=== PATIENT | female | born 1945 | race Two or more races ===

== ENCOUNTER 2022-11-22 10:58 | Inpatient (IN) | payer MEDICAID, OTHER ==
[~2022-11-22] VITALS: Ht 152.4 cm; Wt 57.2 kg
[2022-11-22] MEDS ORDERED: IPRATROPIUM BROM 0.5 MG/2.5ML INH SOL HHN ONE (11:30)
[2022-11-22] MEDS ORDERED: ALBUTEROL SULF 2.5 MG/0.5ML(0.5%) NEB SOLN HHN ONE (11:30)
[2022-11-22] MEDS ORDERED: methylPREDNISolone SOD SUCC 125 MG/2 ML VL IV ONE (11:30)
[2022-11-22 12:15] LABS: Basophils # (auto) 0 10 ^3/uL (0-0.2); Basophils % (auto) 0.6 % (0.0-2.0); Eosinophils # (auto) 0.1 10 ^3/uL (0-0.8); Hematocrit 44.9 % (36.0-46.0); Hemoglobin 15.2 g/dL (12.2-16.2); Lymphocytes # (auto) 1.1 10 ^3/uL (0.4-5.4); Lymphocytes % (auto) 13.4 % (10.0-50.0); Mean Corpuscular Hgb Conc. 33.8 g/dL (32.0-36.0); Mean Corpuscular Volume 91.8 fL (80.0-100.0); Monocytes # (auto) 0.3 10 ^3/uL (0-1.3); Monocytes % (auto) 3.6 % (0.0-12.0); Neutrophils # (auto) 6.6 10 ^3/uL (1.6-8.6); Neutrophils % (auto) 81.4 % (37.0-80.0); Nucleated Red Blood Cells % 0.1 %; Red Blood Cells 4.89 10^6/uL (4.0-5.20); Red Cell Distribution Width 13.4 % (11.8-14.3); White Blood Cell 8.1 10^3/uL (4.4-10.8)
[2022-11-22 12:34] LABS: Albumin 3.6 g/dL (3.4-5.0); Calcium 8.7 mg/dL (8.5-10.1); Magnesium 1.9 mg/dL (1.6-2.6); Potassium 4.1 mmol/L (3.5-5.1)
[2022-11-22 12:39] LABS: BUN/Creatinine Ratio 26.2; Bilirubin, Total 0.3 mg/dL (0.2-1.0); Total Protein 7.1 g/dL (6.4-8.2)
[2022-11-22 14:58] LABS: Urine Bacteria NONE SEEN /hpf (None Seen); Urine Blood Negative /uL (Negative); Urine Specific Gravity 1.011 (1.001-1.035); Urine WBC <1 /hpf (0 - 5)
[2022-11-22 18:00] VITALS: BP 147/65
[2022-11-22] MEDS ORDERED: ALBUTEROL SULF 2.5 MG/0.5ML(0.5%) NEB SOLN NEB PRN (18:00)
[2022-11-22] MEDS ORDERED: MORPHINE SULFATE INJ 2 MG/ml SYRG IV PRN (18:00)
[2022-11-22] MEDS ORDERED: NITROGLYCERIN 0.4 MG SL TAB SL PRN (18:00)
[2022-11-22] MEDS ORDERED: IPRATROPIUM BROM 0.5 MG/2.5ML INH SOL NEB PRN (18:00)
[2022-11-22] MEDS ORDERED: LISINOPRIL 10 MG TAB PO ONE (18:15)
[2022-11-22] MEDS ORDERED: hydrALAZINE HCL 20 MG/ML VL IV PRN (18:15)
[2022-11-22] MEDS: IPRATROPIUM BROM 0.5 MG/2.5ML INH SOL NEB SCH (18:38)
[2022-11-22] MEDS: ALBUTEROL SULF 2.5 MG/0.5ML(0.5%) NEB SOLN NEB SCH (18:38)
[2022-11-22 19:13] LABS: Cholesterol 166 mg/dL (< 200); Triglycerides 64 mg/dL (< 150)
[2022-11-22 19:15] LABS: HDL Cholesterol 49 mg/dL (40-59); LDL Cholesterol 112 mg/dL (< 100)
[2022-11-22] MEDS: methylPREDNISolone SOD SUCC 40 MG/ML VL IV SCH (21:34)
[2022-11-23] MEDS: ALBUTEROL SULF 2.5 MG/0.5ML(0.5%) NEB SOLN NEB SCH ×3 (05:21→19:11)
[2022-11-23 05:38] LABS: Basophils # (auto) 0 10 ^3/uL (0-0.2); Basophils % (auto) 0.3 % (0.0-2.0); Eosinophils # (auto) 0 10 ^3/uL (0-0.8); Hematocrit 42.1 % (36.0-46.0); Hemoglobin 14.1 g/dL (12.2-16.2); Lymphocytes % (auto) 9.4 % (10.0-50.0); Mean Corpuscular Hemoglobin 31.1 pg (28.0-32.0); Mean Corpuscular Hgb Conc. 33.6 g/dL (32.0-36.0); Mean Corpuscular Volume 92.8 fL (80.0-100.0); Monocytes # (auto) 0.2 10 ^3/uL (0-1.3); Monocytes % (auto) 1.5 % (0.0-12.0); Neutrophils # (auto) 9.7 10 ^3/uL (1.6-8.6); Neutrophils % (auto) 88.8 % (37.0-80.0); Nucleated Red Blood Cells % 0.1 %; Red Blood Cells 4.54 10^6/uL (4.0-5.20); Red Cell Distribution Width 13.5 % (11.8-14.3); White Blood Cell 10.9 10^3/uL (4.4-10.8)
[2022-11-23 05:48] LABS: Potassium 4.8 mmol/L (3.5-5.1)
[2022-11-23 05:53] LABS: Albumin 3.2 g/dL (3.4-5.0); BUN/Creatinine Ratio 25.4; Bilirubin, Total 0.3 mg/dL (0.2-1.0); Calcium 9.1 mg/dL (8.5-10.1); Total Protein 6.9 g/dL (6.4-8.2)
[2022-11-23] MEDS: methylPREDNISolone SOD SUCC 40 MG/ML VL IV SCH ×2 (10:29→21:20)
[2022-11-23] MEDS: ENOXAPARIN SOD 40 MG/0.4 ML SYRINGE SC SCH (10:30)
[2022-11-23] MEDS: LISINOPRIL 10 MG TAB PO SCH (10:31)
[2022-11-23] MEDS: IPRATROPIUM BROM 0.5 MG/2.5ML INH SOL NEB SCH ×3 (11:22→19:11)
[2022-11-23 17:36] VITALS: BP 154/64
[2022-11-23 22:00] VITALS: BP 145/50
[2022-11-24] VITALS (7 sets, daily range): BP systolic 102–154; BP diastolic 49–67
[2022-11-24] MEDS: IPRATROPIUM BROM 0.5 MG/2.5ML INH SOL NEB SCH ×3 (06:50→18:44)
[2022-11-24] MEDS: ALBUTEROL SULF 2.5 MG/0.5ML(0.5%) NEB SOLN NEB SCH ×3 (06:50→18:44)
[2022-11-24] MEDS: methylPREDNISolone SOD SUCC 40 MG/ML VL IV SCH ×2 (09:42→21:02)
[2022-11-24] MEDS: ENOXAPARIN SOD 40 MG/0.4 ML SYRINGE SC SCH (09:42)
[2022-11-24] MEDS: LISINOPRIL 10 MG TAB PO SCH (09:43)
[2022-11-25 05:00] VITALS: BP 155/56
[2022-11-25] MEDS: IPRATROPIUM BROM 0.5 MG/2.5ML INH SOL NEB SCH ×4 (07:07→18:50)
[2022-11-25] MEDS: ALBUTEROL SULF 2.5 MG/0.5ML(0.5%) NEB SOLN NEB SCH ×4 (07:07→18:50)
[2022-11-25 08:30] VITALS: BP 147/50
[2022-11-25] MEDS: methylPREDNISolone SOD SUCC 40 MG/ML VL IV SCH (08:39)
[2022-11-25] MEDS: LISINOPRIL 10 MG TAB PO SCH (08:40)
[2022-11-25] MEDS ORDERED: ENOXAPARIN SOD 30 MG/0.3 ML SYRINGE SC SCH (10:00)
[2022-11-25] MEDS ORDERED: PRED20TA2 PO (12:23)
[2022-11-25 12:30] VITALS: BP 147/49
[2022-11-25 16:30] VITALS: BP 147/49
[2022-11-25 17:00] VITALS: BP 155/56
== END 2022-11-25 18:30 | disposition home or self-care (01) | DRG 133 ==
LOC: ER 10:58 → EEVIPCON 10:58 → TELE 18:06 → TELE-WESTW 11-23 17:16
PROVIDERS: ADMIT Registered Nurse; ATTEND Internal Medicine Pulmonary Disease
DX: J96.01 Acute respiratory failure with hypoxia (principal); N17.9 Acute kidney failure, unspecified; J45.901 Unspecified asthma with (acute) exacerbation; I10 Essential (primary) hypertension; I16.0 Hypertensive urgency; Z20.822 Contact with and (suspected) exposure to COVID-19
CPT/HCPCS: 36415; 36600; 71045; 80053; 80061; 81001; 82805; 83036; 83605; 83735; 83880; 84443; 84484; 85025; 85379; 87040; 87426; 93005; 93306; 94640; 94644; G0378

== ENCOUNTER 2024-12-15 14:37 | Inpatient (IN) | payer MEDICAID ==
[~2024-12-15] VITALS: Ht 152.4 cm; Wt 64.7 kg
[~2024-12-15 14:37] MED LIST: PRED20TA2 PO
--- NOTE | 2024-12-15 14:58 | ECG ---
[facility] Test Date: 2024-12-15 Test Time: 14:52:37 Pat Name: LALITHA LAY Department: ER Room: 0274T Gender: F Nursing Associate: EZEQUIEL : 1944-09-13 Requested By: SAMUEL OLSEN Order Number: [id number] Reading MD: Melvin Morrell Measurements Intervals [place] Rate: 71 P: -4 WA: 128 QRS: -17 QRSD: 47 T: 0 QT: 420 QTc: 457 Interpretive Statements Sinus rhythm Borderline left axis deviation Borderline T abnormalities, diffuse leads Electronically Signed On 12-20-2024 20:49:57 PDT by Melvin Morrell Please click the below link to view image of tracing.
[2024-12-15] MEDS: ALBUTEROL SULF 2.5 MG/0.5ML(0.5%) NEB SOLN HHN ONE (15:09)
[2024-12-15] MEDS: IPRATROPIUM BROM 0.5 MG/2.5ML INH SOL HHN ONE (15:09)
[2024-12-15] MEDS: methylPREDNISolone SOD SUCC 125 MG/2 ML VL IV ONE (15:23)
[2024-12-15 15:24] LABS: Basophils # (auto) 0.1 10 ^3/uL (0-0.2); Basophils % (auto) 1.1 % (0.0-2.0); Eosinophils # (auto) 0.6 10 ^3/uL (0-0.8); Eosinophils % (auto) 6.5 % (0.0-7.0); Hematocrit 42.6 % (36.0-46.0); Hemoglobin 13.7 g/dL (12.2-16.2); Lymphocytes # (auto) 2.9 10 ^3/uL (0.4-5.4); Lymphocytes % (auto) 29.7 % (10.0-50.0); Mean Corpuscular Hemoglobin 29.3 pg (28.0-32.0); Mean Corpuscular Hgb Conc. 32.1 g/dL (32.0-36.0); Mean Corpuscular Volume 91.1 fL (80.0-100.0); Monocytes # (auto) 0.8 10 ^3/uL (0-1.3); Monocytes % (auto) 8.6 % (0.0-12.0); Neutrophils # (auto) 5.4 10 ^3/uL (1.6-8.6); Neutrophils % (auto) 54.1 % (37.0-80.0); Platelet Count (auto) 229 10^3/uL (140-450); Red Blood Cells 4.68 10^6/uL (4.0-5.20); Red Cell Distribution Width 13.9 % (11.8-14.3); White Blood Cell 9.9 10^3/uL (4.4-10.8)
[2024-12-15 15:30] LABS: Chloride 107 mmol/L (98-107); Potassium 4.3 mmol/L (3.5-5.1); Sodium 142 mmol/L (136-145)
[2024-12-15 15:31] LABS: Anion Gap 7 (5-15); Calcium 9.4 mg/dL (8.7-10.4); Carbon Dioxide 28 mmol/L (20-31)
[2024-12-15 15:36] LABS: BUN/Creatinine Ratio 27.7 (10.0-20.0); Blood Urea Nitrogen 28 mg/dL (9-23); Glucose 105 mg/dL (74-106)
--- NOTE | 2024-12-15 15:52 | ED.PDOC ---
SOB-HPI HPI Comments 80 y/o obese F, with a history of acute hypoxic respiratory failure, asthma, and HTN, presents with relative for c/o shortness of breath and HTN, today. Per relative, patient is a Latvian speaker and endorses having difficulty breathing for the past four days in addition to noticing her blood pressure being elevated since yesterday. She reports on albuterol inhaler use, with no relief or improvement to breathing, prior to ED visit. Patient states on no recent sick contact, travel, or other relevant or pertinent information. Patient denies any chest pain, cough, congestion, fever, chills, or other associated symptoms or modifying factors at this time. Upon arrival to ED, patient was found with a SpO2 of 91%RA and a blood pressure of 212/69. 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 Family History Family History: Reviewed,noncontributory to illness Social History Smoker: Non-Smoker Alcohol: Denies ETOH Use Drugs: Denies Drug Use Lives In: Home All Other Systems: Reviewed and Negative (Comprehensive systems review obtained and negative except for what is stated in the HPI.) Physical Exam General Appearance: Mild Distress, Normal, Other (Mild respiratory distress) HEENT: Normal ENT Inspection, Pharynx Normal, TMs Normal Neck: Full Range of Motion, Non-Tender, Normal, Normal Inspection Respiratory: Chest Non-Tender, Lungs Clear, No Accessory Muscle Use, Other (Mild respiratory distress, scattered inspiratory and expiratory wheezes, no rales or rhonchi) Cardiovascular: No Edema, No JVD, No Murmur, No Gallop, Normal Peripheral Pulses, Regular Rate/Rhythm Breast Exam: Deferred Gastrointestinal: No Organomegaly, Non Tender, No Pulsatile Mass, Normal Bowel Sounds, Soft Genitalia: Deferred Pelvic: Deferred Rectal: Deferred Extremities: No calf tenderness, Normal capillary refill, Normal inspection, Normal range of motion, Non-tender, No pedal edema Musculoskeletal : Apperance: Normal Neurologic: Alert, striper spray gun II-XII nml as Tested, No Motor Deficits, Normal Affect, Normal Mood, No Sensory Deficits Cerebellar Function: NOT DONE Reflexes: NOT DONE Skin: Dry, Normal Color, Warm Lymphatic: NOT DONE EKG EKG : Pulse Rate (adult): 71 [place]: LAD Cardiac Rhythm: NSR Block: None Hypertrophy: None Comments diffuse borderline T-wave abnormalities Was a procedure done? Was a procedure done?: No Differential Dx Differential Diagnosis: Anxiety, Asthma, Bronchitis, Hypertension (emergency ), Hyperventilation, Panic Attack, Pneumonia, Respiratory Distress, URI, Other (viral syndrome) X-Ray, Labs, Meds, VS Vital Signs Date Time Temp Pulse Resp B/P (MAP) Pulse Ox O2 Delivery O2 Flow Rate FiO2 12/15/24 19:25 98.7 83 24 166/72 (103) 97 98.7 12/15/24 18:00 82 19 174/68 (103) 94 12/15/24 17:00 82 19 173/63 (99) 94 12/15/24 16:05 18 Nasal Cannula* 2 28 12/15/24 16:05 84 18 193/63 (106) 98 12/15/24 16:00 82 12/15/24 15:52 71 12/15/24 15:10 18 100 Nasal Cannula* 2 28 12/15/24 14:52 71 12/15/24 14:46 99.0 73 24 212/69 (116) 91 99.0 12/15/24 14:46 24 95 Nasal Cannula 2.0 Lab Test 12/15/24 15:01 Range/Units White Blood Count 9.9 4.4-10.8 10^3/uL Red Blood Count 4.68 4.0-5.20 10^6/uL Hemoglobin 13.7 12.2-16.2 g/dL Hematocrit 42.6 36.0-46.0 % Mean Corpuscular Volume 91.1 80.0-100.0 fL Mean Corpuscular Hemoglobin 29.3 28.0-32.0 pg Mean Corpuscular Hemoglobin Concent 32.1 32.0-36.0 g/dL Red Cell Distribution Width 13.9 11.8-14.3 % Platelet Count 229 140-450 10^3/uL Mean Platelet Volume 9.6 6.9-10.8 fL Neutrophils (%) (Auto) 54.1 37.0-80.0 % Lymphocytes (%) (Auto) 29.7 10.0-50.0 % Monocytes (%) (Auto) 8.6 0.0-12.0 % Eosinophils (%) (Auto) 6.5 0.0-7.0 % Basophils (%) (Auto) 1.1 0.0-2.0 % Neutrophils # (Auto) 5.4 1.6-8.6 10 ^3/uL Lymphocytes # (Auto) 2.9 0.4-5.4 10 ^3/uL Monocytes # (Auto) 0.8 0-1.3 10 ^3/uL Eosinophils # (Auto) 0.6 0-0.8 10 ^3/uL Basophils # (Auto) 0.1 0-0.2 10 ^3/uL Nucleated Red Blood Cells 0.0 % Sodium Level 142 136-145 mmol/L Potassium Level 4.3 3.5-5.1 mmol/L Chloride Level 107 98-107 mmol/L Carbon Dioxide Level 28 20-31 mmol/L Anion Gap 7 5-15 Blood Urea Nitrogen 28 H 9-23 mg/dL Creatinine 1.01 0.550-1.02 mg/dL Glomerular Filtration Rate Calc 57 >90 mL/min BUN/Creatinine Ratio 27.7 H 10.0-20.0 Serum Glucose 105 74-106 mg/dL Calcium Level 9.4 8.7-10.4 mg/dL Current Medications Medications (Trade) Dose Ordered Sig/Dusty Route Start Time Stop Time Status Last Admin Albuterol (Ventolin Medneb) 20 mg ONCE ONCE N 12/15/24 15:00 12/15/24 15:01 DC 12/15/24 15:09 Ipratropium [place] (Atrovent Medneb) 1 mg ONCE ONCE HHN 12/15/24 15:00 12/15/24 15:01 DC 12/15/24 15:09 Methylprednisolone Sodium Succinate (Solu Medrol) 125 mg ONCE ONCE IV 12/15/24 15:00 12/15/24 15:01 DC 12/15/24 15:23 X-Ray, Labs, Meds, VS Comment 80-year-old female with a history of asthma here today for concern for asthma exacerbation and hypertension. Patient noted to be hypoxic to the high 80s on room air, improved to the high 90s with a 4 L nasal cannula. Blood pressure initially with systolics in the 200s however improved to the 160s after patient was received nebulizer treatments, steroids. Attempted to trial patient off of oxygen however she desaturates to the high 80s/low 90s. Plan made to admit the patient to the hospital for further treatment of her asthma exacerbation and management of her hypertension. Patient also states that previously she was on home oxygen therapy and thinks that she requires this, we will admit also for further assessment of need for oxygen and possible initiation of home oxygen therapy. Patient and daughter at bedside in agreement with the plan. Considered PE however doubt given patient has no chest pain, prior history of blood clots, no smoking history, not on estrogen therapy, no hemoptysis. Doubt ACS given no chest pain and EKG without evidence of acute ischemia. Time of 1ST Reevaluation: 15:20 Reevaluation 1ST: Unchanged Time of 2ND Reevaluation: 20:06 Reevaluation 2ND: Unchanged Patient Education/Counseling: Diagnosis, Treatment Family Education/Counseling: Diagnosis, Treatment Additional Information Previous medical encounters reviewed: November 22, 2022 encounter for acute respiratory failure The following tests were ordered, and results were reviewed by me: EKG, BMP, CBC Additional Information was gathered from interviewing the following independent historians: Family I reviewed and agreed with the following test results read by other providers: N/A I discussed treatment and results with medical personnel and: Patient, family Departure 1 Departure Time of Disposition: 19:32 Impression: Primary Impression: Asthma exacerbation Additional Impressions: Hypertension Acute hypoxic respiratory failure Disposition: 02 SHORT TERM HOSPITAL Admit to: Tele Condition: Guarded Critical Care Note Critical Care Time?: Yes (30 min-critical care time only) Stability Stability form required: No Heart Score Heart Score: Heart Score Response (Comments) Value History N/A 0 EKG N/A 0 Age N/A 0 Risk Factors N/A 0 Troponin N/A 0 Total 0 LISETH DOMINGUEZ Dec 15, 2024 15:52 SAMUEL OLSEN MD Dec 15, 2024 20:08
[2024-12-15 16:05] VITALS: RESP 18
[2024-12-15 19:25] VITALS: PULSE 83; RESP 18; O2SAT 97
--- NOTE | 2024-12-15 20:32 | DVH ---
CHEST RADIOGRAPH Indication: sob Technique: Single frontal view of the chest was obtained COMPARISON: XY CHEST PORTABLE on DOS: 11/22/22 FINDINGS: Lines and Tubes: None Lungs: Clear Pleura: No effusion.No pneumothorax. Cardiomediastinal contours: Within normal limits. Bones: Unremarkable IMPRESSION: No acute disease.
--- NOTE | 2024-12-15 20:50 | DVHHP2 ---
History of Present Illness Reason for Visit: Shortness for breath History of Present Illness 80-year-old female history of asthma presents for evaluation of shortness for breath pain patient reports a history worsening shortness for breath not being relieved with her inhaler and nebulizer home. Patient also noted to be hyperte nsive in the 180s on arrival to the emergency department. Currently she denies headache blurred vision. No chest pain. Past Medical History Attention and asthma Past Surgical History Denies Family History Noncontributory Smoke: No ALCOHOL: none Drugs: None Lives: with Family Review of Systems Review of Systems Review of systems are currently negative otherwise addressed in HPI. Allergies: Coded Allergies: NO KNOWN ALLERGIES (Unverified , 11/22/22) Medications Current Medications Medications Dose Ordered Sig/Dusty Route Start Time Stop Time Status Last Admin Dose Admin Ondansetron HCl 4 mg Q4HP PRN IV 12/15/24 20:15 UNV Enoxaparin Sodium 40 mg DAILY SC 12/16/24 10:00 UNV Acetaminophen 650 mg Q6HP PRN PO 12/15/24 20:15 UNV Albuterol 2.5 mg Q6HPRN PRN NEB 12/15/24 20:15 UNV Ipratropium [place] 0.5 mg Q6HPRN PRN NEB 12/15/24 20:15 UNV Losartan Potassium 50 mg DAILY PO 12/16/24 10:00 UNV Hydralazine HCl 10 mg Q6HP PRN IV 12/15/24 20:45 UNV Exam Vital Signs Vital Signs Date Time Temp Pulse Resp B/P (MAP) Pulse Ox O2 Delivery O2 Flow Rate FiO2 12/15/24 20:24 79 19 183/65 (104) 95 12/15/24 19:25 98.7 98.7 12/15/24 19:25 Nasal Cannula* 2 28 Labs/Xrays ORDERING PHYSICIAN: AMANDA CUELLAR PROCEDURE(s): CXR1 - CHEST XRAY 1 VIEW REASON: sob ORDER NUMBER(s): [id number], ACCESSION NUMBER(s): [id number] CHEST RADIOGRAPH Indication: sob Technique: Single frontal view of the chest was obtained COMPARISON: XY CHEST PORTABLE on DOS: 11/22/22 FINDINGS: Lines and Tubes: None Lungs: Clear Pleura: No effusion.No pneumothorax. Cardiomediastinal contours: Within normal limits. Bones: Unremarkable IMPRESSION: No acute disease. Labs Test 12/15/24 15:01 Range/Units White Blood Count 9.9 4.4-10.8 10^3/uL Red Blood Count 4.68 4.0-5.20 10^6/uL Hemoglobin 13.7 12.2-16.2 g/dL Hematocrit 42.6 36.0-46.0 % Mean Corpuscular Volume 91.1 80.0-100.0 fL Mean Corpuscular Hemoglobin 29.3 28.0-32.0 pg Mean Corpuscular Hemoglobin Concent 32.1 32.0-36.0 g/dL Red Cell Distribution Width 13.9 11.8-14.3 % Platelet Count 229 140-450 10^3/uL Mean Platelet Volume 9.6 6.9-10.8 fL Neutrophils (%) (Auto) 54.1 37.0-80.0 % Lymphocytes (%) (Auto) 29.7 10.0-50.0 % Monocytes (%) (Auto) 8.6 0.0-12.0 % Eosinophils (%) (Auto) 6.5 0.0-7.0 % Basophils (%) (Auto) 1.1 0.0-2.0 % Neutrophils # (Auto) 5.4 1.6-8.6 10 ^3/uL Lymphocytes # (Auto) 2.9 0.4-5.4 10 ^3/uL Monocytes # (Auto) 0.8 0-1.3 10 ^3/uL Eosinophils # (Auto) 0.6 0-0.8 10 ^3/uL Basophils # (Auto) 0.1 0-0.2 10 ^3/uL Nucleated Red Blood Cells 0.0 % Sodium Level 142 136-145 mmol/L Potassium Level 4.3 3.5-5.1 mmol/L Chloride Level 107 98-107 mmol/L Carbon Dioxide Level 28 20-31 mmol/L Anion Gap 7 5-15 Blood Urea Nitrogen 28 H 9-23 mg/dL Creatinine 1.01 0.550-1.02 mg/dL Glomerular Filtration Rate Calc 57 >90 mL/min BUN/Creatinine Ratio 27.7 H 10.0-20.0 Serum Glucose 105 74-106 mg/dL Calcium Level 9.4 8.7-10.4 mg/dL Troponin I High Sensitivity 5 </=34 ng/L Assessment/Plan Assessment/Plan Assessment Acute on chronic hypoxic respiratory failure Status asthmaticus Accelerated hypertension Plan Admit the patient med surge to the [facility] nebs Resume medications As needed antihypertensives Continue treatment per orders. Plan discussed with: Patient My Orders Orders - AMANDA CUELLAR Procedure Category Date Status Time Admit ADMIT 12/15/24 Transmitted 20:01 Chest Xray 1 View XY 12/15/24 Resulted 20:03 Ondansetron Hcl PHA 12/15/24 Logged (Zofran) 20:15 Enoxaparin Sodium PHA 12/16/24 Logged (Lovenox) 10:00 Cardiac DIET 12/16/24 Transmitted Diet-2gna,Lofat,Lochol Breakfast Condition: Stable [place] 12/15/24 In Process 20:03 Acetaminophen Tablet PHA 12/15/24 Logged (Tylenol Tablet) 20:15 Bedrest With Bathroom [place] 12/15/24 In Process Privileg 20:03 Albuterol Medneb PHA 12/15/24 Logged (Ventolin Medneb) 20:15 Ipratropium Medneb PHA 12/15/24 Logged (Atrovent Medneb) 20:15 Losartan Tablet PHA 12/16/24 Logged (Cozaar Tablet) 10:00 Hydralazine Injection PHA 12/15/24 Logged (Apresoline Inject 20:45 Date of Service: Dec 15, 2024 Billing Provider: AMANDA CUELLAR Common Visit Codes: [id number] INP/OBS CARE (HIGH) AMANDA CUELLAR Dec 15, 2024 20:50
[2024-12-15] MEDS: hydrALAZINE HCL 20 MG/ML VL IV ONE (21:35)
[2024-12-15 21:42] VITALS: PULSE 75; RESP 18; O2SAT 96
[2024-12-15 22:55] VITALS: BP 165/86; PULSE 102; RESP 19; TEMP 97.9; O2SAT 95
[2024-12-15 22:58] VITALS: BP 165/86; PULSE 102; RESP 19; TEMP 97.9; O2SAT 95
[2024-12-15 23:31] VITALS: BP 154/67
[2024-12-16] VITALS (10 sets, daily range): BP systolic 132–201; BP diastolic 52–70; PULSE 75–89; RESP 16–18; TEMP 97.3–97.8; O2SAT 91–99
[2024-12-16] MEDS ORDERED: MONT-8 PO (00:07)
[2024-12-16] MEDS ORDERED: LOSA-533 PO (00:07)
[2024-12-16] MEDS: ALBUTEROL SULF 2.5 MG/0.5ML(0.5%) NEB SOLN ONE (08:09)
[2024-12-16] MEDS: IPRATROPIUM BROM 0.5 MG/2.5ML INH SOL ONE (08:09)
[2024-12-16] MEDS: hydrALAZINE HCL 20 MG/ML VL IV PRN (08:55)
[2024-12-16] MEDS: LOSARTAN POTASSIUM 50 MG TAB PO SCH (09:35)
[2024-12-16] MEDS: ENOXAPARIN SOD 40 MG/0.4 ML SYRINGE SC SCH (09:36)
--- NOTE | 2024-12-16 11:09 | DVHPN2 ---
Subjective The patient seen and examined at bedside. No complains. Reviewed: Care Plan, H&P, Labs, Medications, Previous Orders, Radiology Changes from previous H/P or p: No Changes Objective Vitals Vital Signs Date Time Temp Pulse Resp B/P (MAP) Pulse Ox O2 Delivery O2 Flow Rate FiO2 12/16/24 10:00 96 Nasal Cannula 3.0 12/16/24 10:00 32 12/16/24 09:35 187/62 12/16/24 09:00 97.8 75 17 97.8 General Appearance: Alert, Oriented X3, Cooperative, No acute distress HEENT: Atraumatic, PERRLA, EOMI, Mucous membr. moist/pink Neck: Supple Lungs: Clear to auscultation, Normal air movement Cardiovascular: Regular rate, Normal S1, Normal S2, No murmurs, Gallops, Rubs Abdomen: Normal bowel sounds, Soft, No tenderness Neuro: Cranial nerves 3-12 NL Psych/Mental Status: Mental status NL Medications Current Medications Medications Dose Ordered Sig/Dusty Route Start Time Stop Time Status Last Admin Dose Admin Ondansetron HCl 4 mg Q4HP PRN IV 12/15/24 20:15 Enoxaparin Sodium 40 mg DAILY SC 12/16/24 10:00 12/16/24 09:36 40 MG Acetaminophen 650 mg Q6HP PRN PO 12/15/24 20:15 Albuterol 2.5 mg Q6HPRN PRN NEB 12/15/24 20:15 Ipratropium [place] 0.5 mg Q6HPRN PRN NEB 12/15/24 20:15 Losartan Potassium 50 mg DAILY PO 12/16/24 10:00 12/16/24 09:35 50 MG Hydralazine HCl 10 mg Q6HP PRN IV 12/15/24 20:45 12/16/24 08:55 10 MG Furosemide 40 mg BIDD IV 12/16/24 18:00 Laboratory Results Laboratory Tests 12/15/24 15:01 Chemistry Test 12/15/24 15:01 Calcium Level 9.4 mg/dL (8.7-10.4) Labs and/or images reviewed: Labs reviewed by me Assessment/Plan Assessment/Plan Acute on chronic hypoxic respiratory failure Status asthmaticus Accelerated hypertension Continue current management. Continue with nebulizer Continue with oxygen. This medical document was created using an electronic medical record system with M*[employer] direct computerized dictation system. Although this document has been carefully reviewed, there may still be some phonetic and typographical errors. These areas are purely typographical due to imperfections of the software programs, and do not reflect any compromise in the patient's medical care. Plan discussed with: Patient My Orders Orders - ALYSSA GODWIN MD Procedure Category Date Status Time Furosemide Injection PHA 12/16/24 In Process (Lasix Injection) 18:00 Date of Service: Dec 16, 2024 Billing Provider: ALYSSA GODWIN MD Common Visit Codes: [id number] INP/OBS CARE(HIGH) ALYSSA GODWIN MD Dec 16, 2024 11:09
[2024-12-16] MEDS: FUROSEMIDE 40 MG/4 ML VIAL IV ONE (11:58)
[2024-12-16] MEDS: FUROSEMIDE 40 MG/4 ML VIAL IV SCH (18:15)
[2024-12-16] MEDS: HYDROcodone-ACET 5/325MG TAB PO ONE (22:41)
[2024-12-17] VITALS (15 sets, daily range): BP systolic 106–158; BP diastolic 46–63; PULSE 66–96; RESP 16–20; TEMP 96.8–97.9; O2SAT 95–99
[2024-12-17] MEDS: IPRATROPIUM BROM 0.5 MG/2.5ML INH SOL NEB PRN (08:19)
[2024-12-17] MEDS: ALBUTEROL SULF 2.5 MG/0.5ML(0.5%) NEB SOLN NEB PRN (08:19)
--- NOTE | 2024-12-17 11:46 | DVHPN2 ---
Subjective the patient seen and examined at bedside. Still have a lot of shortness of breath. Reviewed: Care Plan, H&P, Labs, Medications, Previous Orders, Radiology Changes from previous H/P or p: No Changes Objective Vitals Vital Signs Date Time Temp Pulse Resp B/P (MAP) Pulse Ox O2 Delivery O2 Flow Rate FiO2 12/17/24 11:22 130/76 12/17/24 09:00 97.3 77 16 95 97.3 12/17/24 08:25 Nasal Cannula* 3 32 Intake/Output Intake and Output 12/17/24 07:00 Intake Total 680 ml Output Total 2200 ml Balance -1520 ml Intake Oral 680 ml Output Urine Total 2200 ml # Voids 2 General Appearance: Alert, Oriented X3, Cooperative, No acute distress HEENT: Atraumatic, PERRLA, EOMI, Mucous membr. moist/pink Neck: Supple Lungs: Clear to auscultation, Normal air movement Cardiovascular: Regular rate, Normal S1, Normal S2, No murmurs, Gallops, Rubs Abdomen: Normal bowel sounds, Soft, No tenderness Neuro: Cranial nerves 3-12 NL Psych/Mental Status: Mental status NL Medications Current Medications Medications Dose Ordered Sig/Dusty Route Start Time Stop Time Status Last Admin Dose Admin Ondansetron HCl 4 mg Q4HP PRN IV 12/15/24 20:15 Enoxaparin Sodium 40 mg DAILY SC 12/16/24 10:00 12/17/24 11:23 40 MG Acetaminophen 650 mg Q6HP PRN PO 12/15/24 20:15 Albuterol 2.5 mg Q6HPRN PRN NEB 12/15/24 20:15 12/17/24 08:19 2.5 MG Ipratropium [place] 0.5 mg Q6HPRN PRN NEB 12/15/24 20:15 12/17/24 08:19 0.5 MG Losartan Potassium 50 mg DAILY PO 12/16/24 10:00 12/17/24 11:22 50 MG Hydralazine HCl 10 mg Q6HP PRN IV 12/15/24 20:45 12/16/24 08:55 10 MG Furosemide 40 mg BIDD IV 12/16/24 18:00 12/17/24 06:16 40 MG Laboratory Results Laboratory Tests 12/15/24 15:01 Labs and/or images reviewed: Labs reviewed by me Assessment/Plan Assessment/Plan Acute on chronic hypoxic respiratory failure Status asthmaticus Accelerated hypertension Add solumedrol IV Continue nebulizer Continue oxygen Continue HTN medication. This medical document was created using an electronic medical record system with M[employer] computerized dictation system. Although this document has been carefully reviewed, there may still be some phonetic and typographical errors. These areas are purely typographical due to imperfections of the software programs, and do not reflect any compromise in the patient's medical care. Plan discussed with: Patient Date of Service: Dec 17, 2024 Billing Provider: ALYSSA GODWIN MD Common Visit Codes: [id number] INP/OBS CARE(HIGH) ALYSSA GODWIN MD Dec 17, 2024 11:46
[2024-12-18] VITALS (13 sets, daily range): BP systolic 111–184; BP diastolic 41–68; PULSE 60–92; RESP 16–20; TEMP 97.2–99.2; O2SAT 92–100
[2024-12-18] MEDS: ONDANSETRON HCL 4 MG/2 ML VIAL IV PRN (09:28)
[2024-12-18] MEDS: methylPREDNISolone SOD SUCC 125 MG/2 ML VL IV SCH (22:29)
[2024-12-19] VITALS (13 sets, daily range): BP systolic 127–166; BP diastolic 51–69; PULSE 74–95; RESP 16–19; TEMP 98–98.4; O2SAT 77–100
--- NOTE | 2024-12-19 14:33 | DVHPN2 ---
Reviewed: Care Plan, H&P, Labs, Medications, Previous Orders, Radiology Changes from previous H/P or p: No Changes General: Per HPI Objective Vitals Vital Signs Date Time Temp Pulse Resp B/P (MAP) Pulse Ox O2 Delivery O2 Flow Rate FiO2 12/19/24 13:21 74 16 100 12/19/24 13:13 Nasal Cannula* 3 32 12/19/24 12:51 98.4 127/51 (76) 98.4 Intake/Output Intake and Output 12/19/24 06:59 Intake Total 750 ml Output Total 1500 ml Balance -750 ml Intake Oral 750 ml Output Urine Total 1500 ml General Appearance: Alert, Oriented X3, Cooperative, No acute distress HEENT: Atraumatic, PERRLA, EOMI, Mucous membr. moist/pink Neck: Supple Lungs: Clear to auscultation, Normal air movement Cardiovascular: Regular rate, Normal S1, Normal S2, No murmurs, Gallops, Rubs Abdomen: Normal bowel sounds, Soft, No tenderness Neuro: Cranial nerves 3-12 NL Psych/Mental Status: Mental status NL Medications Current Medications Medications Dose Ordered Sig/Dusty Route Start Time Stop Time Status Last Admin Dose Admin Ondansetron HCl 4 mg Q4HP PRN IV 12/15/24 20:15 12/19/24 08:02 4 MG Enoxaparin Sodium 40 mg DAILY SC 12/16/24 10:00 12/19/24 08:02 40 MG Acetaminophen 650 mg Q6HP PRN PO 12/15/24 20:15 Albuterol 2.5 mg Q6HPRN PRN NEB 12/15/24 20:15 12/19/24 13:13 2.5 MG Ipratropium [place] 0.5 mg Q6HPRN PRN NEB 12/15/24 20:15 12/19/24 13:13 0.5 MG Losartan Potassium 50 mg DAILY PO 12/16/24 10:00 12/19/24 08:03 50 MG Hydralazine HCl 10 mg Q6HP PRN IV 12/15/24 20:45 12/19/24 05:01 10 MG Furosemide 40 mg BIDD IV 12/16/24 18:00 12/19/24 06:42 40 MG Methylprednisolone Sodium Succinate 60 mg Q8HR IV 12/18/24 22:00 12/19/24 13:42 60 MG Laboratory Results Laboratory Tests 12/15/24 15:01 Labs and/or images reviewed: Labs reviewed by me, Image(s) reviewed by me Assessment/Plan Assessment/Plan Acute on chronic hypoxic respiratory failure Status asthmaticus Accelerated hypertension weakness Add solumedrol IV Continue nebulizer Continue oxygen Continue HTN medication. This medical document was created using an electronic medical record system with M*[employer] direct computerized dictation system. Although this document has been carefully reviewed, there may still be some phonetic and typographical errors. These areas are purely typographical due to imperfections of the software programs, and do not reflect any compromise in the patient's medical care. Plan discussed with: Patient Date of Service: Dec 18, 2024 Billing Provider: CONCEPCION HEART DO Common Visit Codes: [id number] INP/OBS CARE(HIGH) CONCEPCION HEART DO Dec 19, 2024 14:33
--- NOTE | 2024-12-19 14:35 | DVHPN2 ---
Reviewed: Care Plan, H&P, Labs, Medications, Previous Orders, Radiology Changes from previous H/P or p: No Changes General: Per HPI Objective Vitals Vital Signs Date Time Temp Pulse Resp B/P (MAP) Pulse Ox O2 Delivery O2 Flow Rate FiO2 12/19/24 13:21 74 16 100 12/19/24 13:13 Nasal Cannula* 3 32 12/19/24 12:51 98.4 127/51 (76) 98.4 Intake/Output Intake and Output 12/19/24 06:59 Intake Total 750 ml Output Total 1500 ml Balance -750 ml Intake Oral 750 ml Output Urine Total 1500 ml General Appearance: Alert, Oriented X3, Cooperative, No acute distress HEENT: Atraumatic, PERRLA, EOMI, Mucous membr. moist/pink Neck: Supple Lungs: Clear to auscultation, Normal air movement Cardiovascular: Regular rate, Normal S1, Normal S2, No murmurs, Gallops, Rubs Abdomen: Normal bowel sounds, Soft, No tenderness Neuro: Cranial nerves 3-12 NL Psych/Mental Status: Mental status NL Medications Current Medications Medications Dose Ordered Sig/Dusty Route Start Time Stop Time Status Last Admin Dose Admin Ondansetron HCl 4 mg Q4HP PRN IV 12/15/24 20:15 12/19/24 08:02 4 MG Enoxaparin Sodium 40 mg DAILY SC 12/16/24 10:00 12/19/24 08:02 40 MG Acetaminophen 650 mg Q6HP PRN PO 12/15/24 20:15 Albuterol 2.5 mg Q6HPRN PRN NEB 12/15/24 20:15 12/19/24 13:13 2.5 MG Ipratropium [place] 0.5 mg Q6HPRN PRN NEB 12/15/24 20:15 12/19/24 13:13 0.5 MG Losartan Potassium 50 mg DAILY PO 12/16/24 10:00 12/19/24 08:03 50 MG Hydralazine HCl 10 mg Q6HP PRN IV 12/15/24 20:45 12/19/24 05:01 10 MG Furosemide 40 mg BIDD IV 12/16/24 18:00 12/19/24 06:42 40 MG Methylprednisolone Sodium Succinate 60 mg Q8HR IV 12/18/24 22:00 12/19/24 13:42 60 MG Laboratory Results Laboratory Tests 12/15/24 15:01 Assessment/Plan Assessment/Plan Acute on chronic hypoxic respiratory failure Status asthmaticus Accelerated hypertension weakness Add solumedrol IV Continue nebulizer Continue oxygen Continue HTN medication. This medical document was created using an electronic medical record system with [employer] computerized dictation system. Although this document has been carefully reviewed, there may still be some phonetic and typographical errors. These areas are purely typographical due to imperfections of the software programs, and do not reflect any compromise in the patient's medical care. Plan discussed with: Patient Date of Service: Dec 19, 2024 Billing Provider: CONCEPCION HEART DO Common Visit Codes: [id number] INP/OBS CARE(HIGH) CONCEPCION HEART DO Dec 19, 2024 14:35
[2024-12-20] VITALS (12 sets, daily range): BP systolic 104–147; BP diastolic 55–68; PULSE 73–92; RESP 14–20; TEMP 97.9–98.6; O2SAT 90–94
[2024-12-21] VITALS (9 sets, daily range): BP systolic 140–153; BP diastolic 58–74; PULSE 72–86; RESP 16–20; TEMP 98.1–98.7; O2SAT 88–93
[2024-12-21] MEDS: ACETAMINOPHEN 325 MG TAB PO PRN (05:50)
--- NOTE | 2024-12-21 14:02 | DVHPN2 ---
Reviewed: Care Plan, H&P, Labs, Medications, Previous Orders, Radiology Changes from previous H/P or p: No Changes General: Per HPI Objective Vitals Vital Signs Date Time Temp Pulse Resp B/P (MAP) Pulse Ox O2 Delivery O2 Flow Rate FiO2 12/21/24 10:59 79 20 92 12/21/24 10:53 Nasal Cannula 3.0 12/21/24 10:53 32 12/21/24 08:46 140/60 12/21/24 08:30 98.6 98.6 Intake/Output Intake and Output 12/21/24 07:00 Intake Total 695 ml Output Total 950 ml Balance -255 ml Intake Oral 695 ml Output Urine Total 950 ml # Bowel Movements 1 General Appearance: Alert, Oriented X3, Cooperative, No acute distress HEENT: Atraumatic, PERRLA, EOMI, Mucous membr. moist/pink Neck: Supple Lungs: Clear to auscultation, Normal air movement Cardiovascular: Regular rate, Normal S1, Normal S2, No murmurs, Gallops, Rubs Abdomen: Normal bowel sounds, Soft, No tenderness Neuro: Cranial nerves 3-12 NL Psych/Mental Status: Mental status NL Medications Current Medications Medications Dose Ordered Sig/Dusty Route Start Time Stop Time Status Last Admin Dose Admin Ondansetron HCl 4 mg Q4HP PRN IV 12/15/24 20:15 12/19/24 08:02 4 MG Enoxaparin Sodium 40 mg DAILY SC 12/16/24 10:00 12/21/24 08:46 40 MG Acetaminophen 650 mg Q6HP PRN PO 12/15/24 20:15 12/21/24 08:52 650 MG Albuterol 2.5 mg Q6HPRN PRN NEB 12/15/24 20:15 12/21/24 10:53 2.5 MG Ipratropium [place] 0.5 mg Q6HPRN PRN NEB 12/15/24 20:15 12/19/24 13:13 0.5 MG Losartan Potassium 50 mg DAILY PO 12/16/24 10:00 12/21/24 08:46 50 MG Hydralazine HCl 10 mg Q6HP PRN IV 12/15/24 20:45 12/19/24 05:01 10 MG Furosemide 40 mg BIDD IV 12/16/24 18:00 12/21/24 05:45 40 MG Methylprednisolone Sodium Succinate 60 mg Q8HR IV 12/18/24 22:00 12/21/24 13:50 60 MG Laboratory Results Laboratory Tests 12/15/24 15:01 Assessment/Plan Assessment/Plan Acute on chronic hypoxic respiratory failure Status asthmaticus Accelerated hypertension weakness Add solumedrol IV Continue nebulizer Continue oxygen Continue HTN medication. This medical document was created using an electronic medical record system with [employer] direct computerized dictation system. Although this document has been carefully reviewed, there may still be some phonetic and typographical errors. These areas are purely typographical due to imperfections of the software programs, and do not reflect any compromise in the patient's medical care. Plan discussed with: Patient Date of Service: Dec 20, 2024 Billing Provider: CONCEPCION HEART DO Common Visit Codes: [id number] INP/OBS CARE(HIGH) CONCEPCION HEART DO Dec 21, 2024 14:02
[2024-12-21] MEDS ORDERED: ALBUAER3 IN (14:03)
--- NOTE | 2024-12-21 14:04 | DVHDS2 ---
Discharge Summary Date of Admission Dec 15, 2024 at 20:01 Date of Discharge: Dec 21, 2024 Labs/Diagnostic Data: Laboratory Results Test 12/15/24 15:01 White Blood Count 9.9 10^3/uL (4.4-10.8) Red Blood Count 4.68 10^6/uL (4.0-5.20) Hemoglobin 13.7 g/dL (12.2-16.2) Hematocrit 42.6 % (36.0-46.0) Mean Corpuscular Volume 91.1 fL (80.0-100.0) Mean Corpuscular Hemoglobin 29.3 pg (28.0-32.0) Mean Corpuscular Hemoglobin Concent 32.1 g/dL (32.0-36.0) Red Cell Distribution Width 13.9 % (11.8-14.3) Platelet Count 229 10^3/uL (140-450) Mean Platelet Volume 9.6 fL (6.9-10.8) Neutrophils (%) (Auto) 54.1 % (37.0-80.0) Lymphocytes (%) (Auto) 29.7 % (10.0-50.0) Monocytes (%) (Auto) 8.6 % (0.0-12.0) Eosinophils (%) (Auto) 6.5 % (0.0-7.0) Basophils (%) (Auto) 1.1 % (0.0-2.0) Neutrophils # (Auto) 5.4 10 ^3/uL (1.6-8.6) Lymphocytes # (Auto) 2.9 10 ^3/uL (0.4-5.4) Monocytes # (Auto) 0.8 10 ^3/uL (0-1.3) Eosinophils # (Auto) 0.6 10 ^3/uL (0-0.8) Basophils # (Auto) 0.1 10 ^3/uL (0-0.2) Nucleated Red Blood Cells 0.0 % Sodium Level 142 mmol/L (136-145) Potassium Level 4.3 mmol/L (3.5-5.1) Chloride Level 107 mmol/L (98-107) Carbon Dioxide Level 28 mmol/L (20-31) Anion Gap 7 (5-15) Blood Urea Nitrogen 28 mg/dL (9-23) Creatinine 1.01 mg/dL (0.550-1.02) Glomerular Filtration Rate Calc 57 mL/min (>90) BUN/Creatinine Ratio 27.7 (10.0-20.0) Serum Glucose 105 mg/dL (74-106) Calcium Level 9.4 mg/dL (8.7-10.4) Troponin I High Sensitivity 5 ng/L (</=34) Other Laboratory Tests 12/15/24 15:01 Brief Hx & Hospital Course: Acute on chronic hypoxic respiratory failure Status asthmaticus Accelerated hypertension weakness Add solumedrol IV Continue nebulizer Continue oxygen Continue HTN medication. discharged to home with albuterol inhaler Condition at Discharge: Good Final Diagnosis/Problems List see above Discharge Disposition: Home Discharge Instruct/Medications Diet: Cardiac 2g Na,low cholest Activity: No Restrictions, As Tolerated Discharge Statement: "Patient was advised to return to the ER or call 911 if any headaches, dizziness, shortness of breath, chest pain, abdominal pain, bleeding, fevers, or worsening of medical condition. Patient was counseled about treatment plan, medications, possible side effects, patientverbalized understanding. All questions were answered to the best of my ability. This discharge took greater then 30 minutes in planning, reviewing documentation, counseling the patient, and discussing with other team members." ASSESSMENT ASSESSMENT Assessment Date of Service: Dec 21, 2024 Billing Provider: CONCEPCION HEART DO Common Visit Codes: [id number]-ZIV/[id number] DISCH DAY >30min CONCEPCION HEART DO Dec 21, 2024 14:04
== END 2024-12-21 18:24 | disposition home or self-care (01) | DRG 133 ==
LOC: ER 14:37 → OVERFLOW 20:01 → WEST WING 22:49 → TELE-WESTW 12-17 01:45
PROVIDERS: ADMIT Internal Medicine; ATTEND Internal Medicine
DX: J96.21 Acute and chronic respiratory failure with hypoxia (principal); J45.902 Unspecified asthma with status asthmaticus; E66.9 Obesity, unspecified; I10 Essential (primary) hypertension; Z68.29 Body mass index [BMI] 29.0-29.9, adult
CPT/HCPCS: 36415; 71045; 80048; 84484; 85025; 93005; 94640; 94644; 96374; 96375; 99291; G0378; J2405

== ENCOUNTER 2024-12-22 16:39 | Inpatient (IN) | payer MEDICAID ==
[~2024-12-22] VITALS: Ht 149.9 cm; Wt 66.9 kg
[~2024-12-22 16:39] MED LIST changes: +ALBUAER3 IN; +LOSA-533 PO; +MONT-8 PO
--- NOTE | 2024-12-22 16:51 | ED.PDOC ---
History of Present Illness HPI Comments 80-year-old female came to the ER complaining of shortness a breath shins she left the hospital last night. She was discharged from this hospital last night after being admitted for a week. Her saturation on arrival was 80% on room air with a heart rate of 82 with a blood pressure 163/76. Patient unable to take deep breaths. The family members did state that they were never given oxygen when she was discharged nor any medication. She denies chest pain. She denies any other symptoms. Time Seen by MD: 16:41 Reviewed Notes: Nurses Notes, Medications, Allergies Allergies: Coded Allergies: NO KNOWN ALLERGIES (Unverified , 11/22/22) Home Meds Active Scripts Albuterol Sulfate (VENTOLIN MDI) 90 Mcg Ih, 90 MCG IN BID PRN for 30 Days, #14 INH 3 Refills Prov:CONCEPCION HEART DO 12/21/24 Prednisone (Prednisone) 20 Mg Tab, 20 MG PO BID for 5 Days, #10 TAB Prov:LOW ELAINE MD 11/25/22 Reported Medications Montelukast Sodium (MONTELUKAST SODIUM) 10 Mg Tab, 1 TAB PO DAILY, #30 TAB 5 Refills 12/16/24 Losartan Potassium (Losartan Potassium) 25 Mg Tab, 25 MG PO DAILY for 30 Days, MG 12/16/24 Information Source: Patient Mode of Arrival: Wheelchair Severity: Moderate Timing: Days Duration: Since onset Past Medical History PAST MEDICAL HISTORY: Asthma, 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 Family History Family History: Reviewed,noncontributory to illness Social History Smoker: Non-Smoker Alcohol: Denies ETOH Use Drugs: Denies Drug Use Lives In: Home Constitutional: denies: chills, diaphoresis, fatigue, fever, malaise, sweats, weakness, others EENTM: denies: blurred vision, double vision, ear bleeding, ear discharge, ear drainage, ear pain, ear ringing, eye pain, eye redness, hearing loss, mouth pain, mouth swelling, nasal discharge, nose bleeding, nose congestion, nose pain, photophobia, tearing, throat pain, throat swelling, voice changes, others Respiratory: reports: shortness of breath; denies: cough, hemoptysis, orthopnea , SOB at rest, SOB with excertion, stridor, wheezing, others Cardiovascular: denies: chest pain, dizzy spells, diaphoresis, Dyspnea on exertion, edema, irregular heart beat, left arm pain, lightheadedness, palpitations, PND, syncope, others Gastrointestinal: denies: abdomen distended, abdominal pain, blood streaked bowels, constipated, diarrhea, dysphagia, difficulty swallowing, hematemesis, melena, nausea, poor appetite, poor fluid intake, rectal bleeding, rectal pain, vomiting, others Genitourinary: denies: abnormal vagina bleeding, burning, dyspareunia, dysuria, flank pain, frequency, hematuria, incontinence, pain, , vagina discharge, urgency, others Neurological: denies: dizziness, fainting, headache, left sided numbness, left sided weakness, numbness, paresthesia, pre-existing deficit, right sided numbness, right sided weakness, seizure, speech problems, tingling, tremors, weakness, others Musculoskeletal: denies: back pain, gout, joint pain, joint swelling, muscle pain, muscle stiffness, neck pain, others Integumetry: denies: bruises, change in color, change in hair/nails, dryness, laceration, lesions, lumps, rash, wounds, others Allergic/Immunocompromised: denies: Difficulty Healing, Frequent Infections, Hives, Itching, others Hematologic/Lymphatic: denies: anemia, blood clots, easy bleeding, easy bruising, swollen glands, others Endocrine: denies: excessive hunger, excessive sweating, excessive thirst, excessive urination, flushing, intolerance to cold, intolerance to heat, unexplained weight gain, unexplained weight loss, others Psychiatric: denies: anxiety, bipolar disorder, depression, hopeless, panic disorder, schizophrenia, sleepless, suicidal, others Physical Exam General Appearance: Moderate Distress HEENT: Normal ENT Inspection, Pharynx Normal, TMs Normal Neck: Full Range of Motion, Non-Tender, Normal, Normal Inspection Respiratory: Other (Coarse breath sounds) Cardiovascular: No Edema, No JVD, No Murmur, No Gallop, Normal Peripheral Pulses, Regular Rate/Rhythm Breast Exam: Deferred Gastrointestinal: No Organomegaly, Non Tender, No Pulsatile Mass, Normal Bowel Sounds, Soft Genitalia: Deferred Pelvic: Deferred Rectal: Deferred Extremities: Normal inspection, No pedal edema Musculoskeletal : Apperance: Normal Neurologic: Alert, No Motor Deficits, No Sensory Deficits Cerebellar Function: NOT DONE Reflexes: NOT DONE Skin: Dry, Normal Color, Warm Peripheral Pulses: 3+ Radial (R), 3+ Radial (L) Lymphatic: No Adenopathy Was a procedure done? Was a procedure done?: No EKG EKG : Pulse Rate (adult): 78 [place]: Normal Cardiac Rhythm: NSR Differential Dx Considerations may include: COPD exacerbation Electrolyte imbalance X-Ray, Labs, Meds, VS Patient alert. Complaining of shortness a breath. Vitals stable. Answering questions. Reviewed her previous visit. Placed on oxygen. She was given steroid. Was given breathing treatment. Explained to the family. Continue monitoring. EKG reviewed does not show any acute changes. Time of 1ST Reevaluation: 16:49 Reevaluation 1ST: Unchanged Patient Education/Counseling: Diagnosis, Treatment, Prognosis Family Education/Counseling: No Family Present Departure 1 Departure Time of Disposition: 16:51 Impression: Primary Impression: Acute respiratory failure Qualified Codes: J96.01 - Acute respiratory failure with hypoxia Additional Impression: Asthma exacerbation Qualified Codes: J45.41 - Moderate persistent asthma with (acute) exacerbation Disposition: ADMITTED INPATIENT Admit to: Med Surg Condition: Guarded Critical Care Note Critical Care Time?: Yes (90 min-critical care time only) Critical care comment: Placed on oxygen Stability Stability form required: No Heart Score Heart Score: Heart Score Response (Comments) Value History N/A 0 EKG N/A 0 Age N/A 0 Risk Factors N/A 0 Troponin N/A 0 Total 0 ADIN WILLIS MD Dec 22, 2024 16:51
[2024-12-22 17:00] VITALS: PULSE 73; RESP 16; O2SAT 95
--- NOTE | 2024-12-22 17:10 | ECG ---
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
[2024-12-22] MEDS: ALBUTEROL SULF 2.5 MG/0.5ML(0.5%) NEB SOLN NEB ONE (17:22)
[2024-12-22] MEDS: IPRATROPIUM BROM 0.5 MG/2.5ML INH SOL NEB ONE (17:22)
[2024-12-22 17:34] LABS: Basophils # (auto) 0.1 10 ^3/uL (0-0.2); Basophils % (auto) 0.5 % (0.0-2.0); Eosinophils # (auto) 0 10 ^3/uL (0-0.8); Hematocrit 44.6 % (36.0-46.0); Hemoglobin 14.7 g/dL (12.2-16.2); Lymphocytes # (auto) 2.5 10 ^3/uL (0.4-5.4); Lymphocytes % (auto) 20.7 % (10.0-50.0); Mean Corpuscular Hemoglobin 29.7 pg (28.0-32.0); Mean Corpuscular Volume 89.8 fL (80.0-100.0); Monocytes # (auto) 1.2 10 ^3/uL (0-1.3); Monocytes % (auto) 9.8 % (0.0-12.0); Neutrophils # (auto) 8.4 10 ^3/uL (1.6-8.6); Platelet Count (auto) 218 10^3/uL (140-450); Red Blood Cells 4.97 10^6/uL (4.0-5.20); Red Cell Distribution Width 13.6 % (11.8-14.3); White Blood Cell 12.1 10^3/uL (4.4-10.8)
[2024-12-22 17:44] LABS: Potassium 4.2 mmol/L (3.5-5.1); Sodium 141 mmol/L (136-145)
[2024-12-22 17:45] LABS: Calcium 9.4 mg/dL (8.7-10.4)
[2024-12-22] MEDS: methylPREDNISolone SOD SUCC 125 MG/2 ML VL IV ONE (17:49)
[2024-12-22 17:50] LABS: BUN/Creatinine Ratio 53.7 (10.0-20.0)
[2024-12-22 17:52] LABS: Anion Gap 5.99999 (5-15); Blood Urea Nitrogen 65 mg/dL (9-23); Chloride 95 mmol/L (98-107); Glucose 204 mg/dL (74-106)
[2024-12-22 17:54] LABS: Carbon Dioxide > 40 mmol/L (20-31)
--- NOTE | 2024-12-22 17:55 | DVH ---
CHEST RADIOGRAPH Indication: sob Technique: Single frontal view of the chest was obtained Comparison: XY CHEST XRAY 1 VIEW on DOS: 12/15/24, XY CHEST PORTABLE on DOS: 11/22/22 FINDINGS: Lungs are slightly hypoinflated. There is borderline cardiomegaly there is mild pulmonary vascular co ngestion and very ectatic aorta. There is also probable left atrial enlargement. IMPRESSION: Mild pulmonary vascular congestion mild or borderline cardiomegaly and a very ectatic aorta with enla rgement of the left atrium. I recommend follow-up cardiac echo and CT examination of the chest
[2024-12-22] MEDS ORDERED: ONDANSETRON HCL 4 MG/2 ML VIAL IV PRN (18:15)
[2024-12-22] MEDS ORDERED: NITROGLYCERIN 0.4 MG SL TAB SL PRN (18:15)
[2024-12-22] MEDS ORDERED: HYDROcodone-ACET 5/325MG TAB PO PRN (18:15)
[2024-12-22] MEDS ORDERED: MORPHINE SULFATE INJ 2 MG/ml SYRG IV PRN ×2 (18:15)
[2024-12-22] MEDS ORDERED: ACETAMINOPHEN 500 MG TAB or CAP PO PRN (18:15)
--- NOTE | 2024-12-22 18:26 | DVHHP2 ---
History of Present Illness Reason for Visit: Shortness of breath History of Present Illness Patient was a 80-year-old female presenting to the emergency room with severe shortness of breath. Apparently, the patient was discharged yesterday, for admission for asthma exacerbation. Patient was treated with steroids, nebulizer treatment. Upon arrival to the emergency room today, the patient had an oxygen saturation of 80%. ABG is not available at this time or from previous recent admission. In 2022, patient was PO2 on ABG was noted to be 50.5. Patient was states that she has never been prescribed oxygen. With the current time, she denies having any sputum production, cough, chest pain, fevers, but does report having audible wheezing. Cardiovascular: HTN Pulmonary: Asthma, COPD Past Surgical History: None Family History: None Smoke: No ALCOHOL: none Drugs: None Lives: with Family Review of Systems Constitutional: No: Fever, Chills, Sweats, Weakness, Malaise, Other Eyes: No: Pain, Vision change, Conjunctivae inflammation, Eyelid inflammation, Other, Redness ENT: No: Ear pain, Ear discharge, Nose pain, Nose discharge, Nose congestion, Mouth pain, Mouth swelling, Throat pain, Throat swelling, Other Respiratory: Shortness of breath, Wheezing Cardiovascular: No: Chest Pain, Palpitations, Orthopnea, Paroxysmal Noc. Dyspnea, Edema, Lt Headedness, Other Gastrointestinal: No: Nausea, Vomiting, Abdominal Pain, Diarrhea, Constipation, Melena, Hematochezia, Other Genitourinary: No Dysuria, No Frequency, No Incontinence, No Hematuria, No Retention, No Other Musculoskeletal: No: other, neck pain, shoulder pain, arm pain, back pain, hand pain, leg pain, foot pain Skin: No: Rash, Lesions, Jaundice, Bruising, Other Neurological: No: Weakness, Numbness, Incoordination, Change in speech, Confusion, Seizures, Other Allergies: Coded Allergies: NO KNOWN ALLERGIES (Unverified , 11/22/22) Medications Current Medications Medications Dose Ordered Sig/Dusty Route Start Time Stop Time Status Last Admin Dose Admin Nitroglycerin 0.4 mg Q5MINP PRN SL 12/22/24 18:15 UNV Morphine Sulfate 2 mg Q30M PRN IV 12/22/24 18:15 UNV Losartan Potassium 25 mg DAILY PO 12/23/24 10:00 UNV Exam Vital Signs Vital Signs Date Time Temp Pulse Resp B/P (MAP) Pulse Ox O2 Delivery O2 Flow Rate FiO2 12/22/24 17:52 99.0 84 28 163/76 (105) 80 99.0 12/22/24 17:22 Nasal Cannula* 2 28 General Appearance: Alert, Oriented X3, Cooperative, mild distress HEENT: Atraumatic, PERRLA Respiratory: Other (Inspiratory and expiratory wheezing) Cardiovascular: Normal S1, Normal S2 Abdominal: Normal bowel sounds Psych/Mental Status: Mental status NL, Mood NL Labs/Xrays Labs Test 12/22/24 17:22 Range/Units White Blood Count 12.1 H 4.4-10.8 10^3/uL Red Blood Count 4.97 4.0-5.20 10^6/uL Hemoglobin 14.7 12.2-16.2 g/dL Hematocrit 44.6 36.0-46.0 % Mean Corpuscular Volume 89.8 80.0-100.0 fL Mean Corpuscular Hemoglobin 29.7 28.0-32.0 pg Mean Corpuscular Hemoglobin Concent 33.0 32.0-36.0 g/dL Red Cell Distribution Width 13.6 11.8-14.3 % Platelet Count 218 140-450 10^3/uL Mean Platelet Volume 10.5 6.9-10.8 fL Neutrophils (%) (Auto) 69.0 37.0-80.0 % Lymphocytes (%) (Auto) 20.7 10.0-50.0 % Monocytes (%) (Auto) 9.8 0.0-12.0 % Eosinophils (%) (Auto) 0.0 0.0-7.0 % Basophils (%) (Auto) 0.5 0.0-2.0 % Neutrophils # (Auto) 8.4 1.6-8.6 10 ^3/uL Lymphocytes # (Auto) 2.5 0.4-5.4 10 ^3/uL Monocytes # (Auto) 1.2 0-1.3 10 ^3/uL Eosinophils # (Auto) 0 0-0.8 10 ^3/uL Basophils # (Auto) 0.1 0-0.2 10 ^3/uL Nucleated Red Blood Cells 0.0 % Sodium Level 141 136-145 mmol/L Potassium Level 4.2 3.5-5.1 mmol/L Chloride Level 95 L 98-107 mmol/L Carbon Dioxide Level > 40 *H 20-31 mmol/L Anion Gap 5.66160 5-15 Blood Urea Nitrogen 65 H 9-23 mg/dL Creatinine 1.21 H 0.550-1.02 mg/dL Glomerular Filtration Rate Calc 46 >90 mL/min BUN/Creatinine Ratio 53.7 H 10.0-20.0 Serum Glucose 204 H 74-106 mg/dL Calcium Level 9.4 8.7-10.4 mg/dL Assessment/Plan Assessment/Plan Impression: -acute hypoxic respiratory failure -COPD with exacerbation -primary hypertension -CKD stage IIIB -sirs response from steroid use Plan: -O2 supplementation to keep saturation greater than 92% -bronchodilators -start prednisone 20 mg p.o. b.i.d. -social service consultation for discharge planning with home oxygen -room air -start antibiotic therapy with azithromycin 500 mg p.o. daily Total time spent with patient discussing and formulating plan of care: 35 minutes. This medical document was created using an electronic medical record system with [employer] dictation system. Although this document has been carefully reviewed, there may still be some phonetic and typographical errors. These areas are purely typographical due to imperfections of the software programs, and do not reflect any compromise in the patient's medical care. 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 For [facility] 12/22/24 Transmitted 24 Hours 18:09 Emergency Dysrhythmia [place] 12/22/24 Transmitted Protocol 18:09 Rhythm Strips Once [facility] 12/22/24 Transmitted Every Shift 18:09 Oxygen By Nasal RT 12/22/24 Transmitted Cannula 18:09 Hemoglobin A1c LAB 12/22/24 Transmitted 18:09 Losartan Tablet [facility] 12/23/24 Transmitted (Cozaar Tablet) 10:00 Montelukast Tablet [facility] 12/23/24 Transmitted (Singulair Tablet) 10:00 Prednisone Tablet PH[facility] 12/22/24 Transmitted 22:00 Morphine Sulfate PHA 12/22/24 Transmitted Injection 18:15 Hydrocodone-Acet PH[facility] 12/22/24 Transmitted 5/325mg Tab ([place] 18:15 Acetaminophen Tab Or PHA 12/22/24 Transmitted Cap (Tylenol Tablet 18:15 Ondansetron Hcl PHA 12/22/24 Transmitted (Zofran) 18:15 Albuterol Medneb PHA 12/22/24 Transmitted (Ventolin Medneb) 18:15 Ipratropium Med[place] PHA 12/22/24 Transmitted (Atrovent Medneb) 18:15 Abg W/ Co-Ox RT 12/22/24 Logged 18:09 Azithromycin Tablet PHA 12/23/24 Transmitted (Zithromax Tablet) 10:00 Date of Service: Dec 22, 2024 Billing Provider: DELON TERRELL NP Common Visit Codes: [id number] INP/OBS CARE (HIGH) DELON TERRELL NP Dec 22, 2024 18:26
[2024-12-22 19:30] VITALS: PULSE 76; RESP 16; O2SAT 92
[2024-12-22 19:47] LABS: Base Excess 10.4 mmol/L (-2.0-3.0)
[2024-12-22 20:05] VITALS: BP 163/76; PULSE 73; RESP 17; TEMP 99; O2SAT 94
[2024-12-22] MEDS: ALBUTEROL SULF 2.5 MG/0.5ML(0.5%) NEB SOLN ONE (21:43)
[2024-12-22] MEDS: IPRATROPIUM BROM 0.5 MG/2.5ML INH SOL ONE (21:44)
[2024-12-22 21:52] LABS: Urine Bacteria None Seen /hpf (None Seen)
[2024-12-22] MEDS: ALBUTEROL SULF 2.5 MG/0.5ML(0.5%) NEB SOLN NEB PRN (22:16)
[2024-12-22 22:17] VITALS: PULSE 66; RESP 19; O2SAT 94
[2024-12-22] MEDS: IPRATROPIUM BROM 0.5 MG/2.5ML INH SOL NEB PRN (22:17)
[2024-12-22 22:27] VITALS: PULSE 64; RESP 16; O2SAT 96
[2024-12-22] MEDS: predniSONE 20 MG TAB PO SCH (22:27)
[2024-12-22 22:31] LABS: Urine Blood TRACE /uL (Negative); Urine Clarity Clear (Clear); Urine Color Light-Yellow (Yellow); Urine Protein, UAD Negative (Negative); Urine Squamous Epithelial Cell FEW /hpf (<5); Urine Urobilinogen Normal (Negative); Urine WBC 1 /HPF (0-5)
[2024-12-22 23:24] VITALS: BP 169/69; PULSE 74; RESP 20; TEMP 98.6; O2SAT 93
[2024-12-23] VITALS (13 sets, daily range): BP systolic 135–185; BP diastolic 52–82; PULSE 63–74; RESP 12–18; TEMP 97.7–98.6; O2SAT 92–98
[2024-12-23] MEDS: MONTELUKAST SODIUM 10 MG TAB PO SCH (08:59)
[2024-12-23] MEDS: LOSARTAN POTASSIUM 25 MG TAB PO SCH (08:59)
[2024-12-23] MEDS: AZITHROMYCIN 250 MG TAB PO SCH (09:00)
--- NOTE | 2024-12-23 13:21 | DVHPN2 ---
Subjective The patient is seen and examined at bedside. Still complain of shortness a breath. Reviewed: Care Plan, H&P, Labs, Medications, Previous Orders, Radiology Changes from previous H/P or p: No Changes Eyes: No Pain, No Vision change, No Conjunctivae inflammation, No Eyelid inflammation, No Other, No Redness ENT: No Ear pain, No Ear discharge, No Nose pain, No Nose discharge, No Nose congestion, No Mouth pain, No Mouth swelling, No Throat pain, No Throat swelling, No Other Cardiovascular: No Chest Pain, No Palpitations, No Orthopnea, No Paroxysmal Noc. Dyspnea, No Edema, No Lt Headedness, No Other Respiratory: Shortness of breath, Wheezing Gastrointestinal: No Nausea, No Vomiting, No Abdominal Pain, No Diarrhea, No Constipation, No Melena, No Hematochezia, No Other Genitourinary: No Dysuria, No Frequency, No Incontinence, No Hematuria, No Retention, No Other Musculoskeletal: No other, No neck pain, No shoulder pain, No arm pain, No back pain, No hand pain, No leg pain, No foot pain Skin: No Rash, No Lesions, No Jaundice, No Bruising, No Other Objective Vitals Vital Signs Date Time Temp Pulse Resp B/P (MAP) Pulse Ox O2 Delivery O2 Flow Rate FiO2 12/23/24 10:00 93 Nasal Cannula* 3 32 12/23/24 08:59 146/57 12/23/24 08:29 97.9 65 15 97.9 Intake/Output Intake and Output 12/23/24 07:00 Intake Total 0 ml Balance 0 ml Intake Oral 0 ml General Appearance: Alert, Oriented X3, Cooperative, No acute distress HEENT: Atraumatic, PERRLA, EOMI, Mucous membr. moist/pink Neck: Supple Lungs: Clear to auscultation, Normal air movement Cardiovascular: Regular rate, Normal S1, Normal S2, No murmurs, Gallops, Rubs Abdomen: Normal bowel sounds, Soft, No tenderness Neuro: Cranial nerves 3-12 NL Psych/Mental Status: Mental status NL Medications Current Medications Medications Dose Ordered Sig/Dusty Route Start Time Stop Time Status Last Admin Dose Admin Nitroglycerin 0.4 mg Q5MINP PRN SL 12/22/24 18:15 Morphine Sulfate 2 mg Q30M PRN IV 12/22/24 18:15 Losartan Potassium 25 mg DAILY PO 12/23/24 10:00 12/23/24 08:59 25 MG Montelukast Sodium 10 mg DAILY PO 12/23/24 10:00 12/23/24 08:59 10 MG Prednisone 20 mg BID PO 12/22/24 22:00 12/23/24 09:00 20 MG Morphine Sulfate 1 mg Q4HPRN PRN IV 12/22/24 18:15 Acetaminophen/ Hydrocodone Bitart 1 tab Q6HPRN PRN PO 12/22/24 18:15 Acetaminophen 500 mg Q8HP PRN PO 12/22/24 18:15 Ondansetron HCl 4 mg Q6HP PRN IV 12/22/24 18:15 Albuterol 2.5 mg Q4HPRN PRN NEB 12/22/24 18:15 12/22/24 22:16 2.5 MG Ipratropium [place] 0.5 mg Q4HPRN PRN NEB 12/22/24 18:15 12/22/24 22:17 0.5 MG Azithromycin 500 mg DAILY PO 12/23/24 10:00 12/23/24 09:00 500 MG Laboratory Results Laboratory Tests 12/22/24 17:22 Chemistry Test 12/22/24 17:22 Calcium Level 9.4 mg/dL (8.7-10.4) HgA1c, TSH Test 12/22/24 17:22 Hemoglobin A1c 7.1 % A1C (<5.7) H Urinalysis Test 12/22/24 21:24 Urine Color Light-yellow (Yellow) Urine Clarity Clear (Clear) Urine pH 8.0 (5.0-9.0) Urine Specific [place] 1.020 (1.001-1.035) Urine Protein Negative (Negative) Urine Ketones Negative (Negative) Urine Blood Trace /uL (Negative) H Urine Nitrite Negative (Negative) Urine Bilirubin Negative (Negative) Urine Urobilinogen Normal mg/dL (Negative) Urine Leukocyte Esterase Negative /uL (Negative) Urine RBC 10 /hpf (0 - 4) Urine Microscopic WBC 1 /HPF (0-5) Urine Squamous Epithelial Cells Few /hpf (<5) Urine Bacteria None seen /hpf (None Seen) Urine Glucose Trace mg/dL (Normal) Blood Gas Results Test 12/22/24 19:30 Arterial Blood pH 7.483 (7.350-7.450) FiO2 % 21.0 Labs and/or images reviewed: Labs reviewed by me Assessment/Plan Assessment/Plan acute hypoxic respiratory failure -COPD with exacerbation -primary hypertension -CKD stage IIIB -sirs response from steroid use Plan: Continuing current management. Continuing nebulized Continuing with prednisone Continuing with oxygen to keep saturation oxygen over 92% Continuing with a Zithromax We will add Rocephin 1 g IV q.day This medical document was created using an electronic medical record system with [employer] computerized dictation system. Although this document has been carefully reviewed, there may still be some phonetic and typographical errors. These areas are purely typographical due to imperfections of the software programs, and do not reflect any compromise in the patient's medical care. Plan discussed with: Patient Date of Service: Dec 23, 2024 Billing Provider: ALYSSA GODWIN MD Common Visit Codes: [id number] INP/OBS CARE(HIGH) ALYSSA GODWIN MD Dec 23, 2024 13:20
[2024-12-23] MEDS ORDERED: DEXTROSE (50%) 50ML SYRG IV PRN (14:30)
[2024-12-23] MEDS: ACCU-CHEK COMFORT CURVE STRIP VI SCH (17:46)
[2024-12-23] MEDS: InsuLIN REG 1unit/0.01ml Soln (100units/ml) SC SCH ×2 (17:46→21:15)
[2024-12-24] VITALS (12 sets, daily range): BP systolic 136–171; BP diastolic 52–74; PULSE 58–80; RESP 17–20; TEMP 97.7–98.4; O2SAT 94–97
[2024-12-24] MEDS: hydrALAZINE HCL 20 MG/ML VL IV PRN (01:10)
[2024-12-25] VITALS (10 sets, daily range): BP systolic 158–179; BP diastolic 56–73; PULSE 57–95; RESP 15–30; TEMP 98–98.4; O2SAT 93–96
--- NOTE | 2024-12-25 11:08 | DVHPN2 ---
Subjective The patient is seen and examined at bedside. Still complain of shortness a breath. Reviewed: Care Plan, H&P, Labs, Medications, Previous Orders, Radiology Changes from previous H/P or p: No Changes Eyes: No Pain, No Vision change, No Conjunctivae inflammation, No Eyelid inflammation, No Other, No Redness ENT: No Ear pain, No Ear discharge, No Nose pain, No Nose discharge, No Nose congestion, No Mouth pain, No Mouth swelling, No Throat pain, No Throat swelling, No Other Cardiovascular: No Chest Pain, No Palpitations, No Orthopnea, No Paroxysmal Noc. Dyspnea, No Edema, No Lt Headedness, No Other Respiratory: Shortness of breath, Wheezing Gastrointestinal: No Nausea, No Vomiting, No Abdominal Pain, No Diarrhea, No Constipation, No Melena, No Hematochezia, No Other Genitourinary: No Dysuria, No Frequency, No Incontinence, No Hematuria, No Retention, No Other Musculoskeletal: No other, No neck pain, No shoulder pain, No arm pain, No back pain, No hand pain, No leg pain, No foot pain Skin: No Rash, No Lesions, No Jaundice, No Bruising, No Other Objective Vitals Vital Signs Date Time Temp Pulse Resp B/P (MAP) Pulse Ox O2 Delivery O2 Flow Rate FiO2 12/25/24 10:27 94 Nasal Cannula 2.0 12/25/24 10:27 28 12/25/24 10:05 133/90 12/25/24 08:00 70 15 12/25/24 05:00 98.1 98.1 Intake/Output Intake and Output 12/25/24 07:00 Intake Total 1475 ml Balance 1475 ml Intake Oral 1475 ml # Voids 5 # Bowel Movements 1 General Appearance: Alert, Oriented X3, Cooperative, No acute distress HEENT: Atraumatic, PERRLA, EOMI, Mucous membr. moist/pink Neck: Supple Lungs: Clear to auscultation, Normal air movement Cardiovascular: Regular rate, Normal S1, Normal S2, No murmurs, Gallops, Rubs Abdomen: Normal bowel sounds, Soft, No tenderness Neuro: Cranial nerves 3-12 NL Psych/Mental Status: Mental status NL Medications Current Medications Medications Dose Ordered Sig/Dusty Route Start Time Stop Time Status Last Admin Dose Admin Nitroglycerin 0.4 mg Q5MINP PRN SL 12/22/24 18:15 Morphine Sulfate 2 mg Q30M PRN IV 12/22/24 18:15 Losartan Potassium 25 mg DAILY PO 12/23/24 10:00 12/25/24 10:05 25 MG Montelukast Sodium 10 mg DAILY PO 12/23/24 10:00 12/25/24 10:05 10 MG Prednisone 20 mg BID PO 12/22/24 22:00 12/25/24 10:05 20 MG Morphine Sulfate 1 mg Q4HPRN PRN IV 12/22/24 18:15 Acetaminophen/ Hydrocodone Bitart 1 tab Q6HPRN PRN PO 12/22/24 18:15 Acetaminophen 500 mg Q8HP PRN PO 12/22/24 18:15 Ondansetron HCl 4 mg Q6HP PRN IV 12/22/24 18:15 Albuterol 2.5 mg Q4HPRN PRN NEB 12/22/24 18:15 12/22/24 22:16 2.5 MG Ipratropium [place] 0.5 mg Q4HPRN PRN NEB 12/22/24 18:15 12/22/24 22:17 0.5 MG Azithromycin 500 mg DAILY PO 12/23/24 10:00 12/25/24 10:04 500 MG Hydralazine HCl 10 mg Q6HP PRN IV 12/23/24 14:30 12/24/24 01:10 10 MG Diagnostic Test (Pha) 1 strip ACHS 12/23/24 17:00 12/25/24 05:58 1 STRIP Insulin Human Regular HS SC 12/23/24 22:00 12/23/24 21:15 4 UNITS Insulin Human Regular AC SC 12/23/24 17:00 12/25/24 06:00 3 UNITS Dextrose 50 ml UD PRN IV 12/23/24 14:30 Laboratory Results Laboratory Tests 12/22/24 17:22 Urinalysis Test 12/22/24 21:24 Urine Color Light-yellow (Yellow) Urine Clarity Clear (Clear) Urine pH 8.0 (5.0-9.0) Urine Specific [place] 1.020 (1.001-1.035) Urine Protein Negative (Negative) Urine Ketones Negative (Negative) Urine Blood Trace /uL (Negative) H Urine Nitrite Negative (Negative) Urine Bilirubin Negative (Negative) Urine Urobilinogen Normal mg/dL (Negative) Urine Leukocyte Esterase Negative /uL (Negative) Urine RBC 10 /hpf (0 - 4) Urine Microscopic WBC 1 /HPF (0-5) Urine Squamous Epithelial Cells Few /hpf (<5) Urine Bacteria None seen /hpf (None Seen) Urine Glucose Trace mg/dL (Normal) Labs and/or images reviewed: Labs reviewed by me Assessment/Plan Assessment/Plan acute hypoxic respiratory failure -COPD with exacerbation -primary hypertension -CKD stage IIIB -sirs response from steroid use Plan: Continuing current management. Continuing nebulized Continuing with prednisone Continuing with oxygen to keep saturation oxygen over 92% Continuing with a Zithromax We will add Rocephin 1 g IV q.day This medical document was created using an electronic medical record system with [employer] computerized dictation system. Although this document has been carefully reviewed, there may still be some phonetic and typographical errors. These areas are purely typographical due to imperfections of the software programs, and do not reflect any compromise in the patient's medical care. Plan discussed with: Patient Date of Service: Dec 24, 2024 Billing Provider: ALYSSA GODWIN MD Common Visit Codes: [id number] INP/OBS CARE(HIGH) ALYSSA GODWIN MD Dec 25, 2024 11:08
--- NOTE | 2024-12-25 12:00 | DVHPN2 ---
Subjective The patient is seen and examined at bedside. Still complain of shortness a breath. Reviewed: Care Plan, H&P, Labs, Medications, Previous Orders, Radiology Changes from previous H/P or p: No Changes Eyes: No Pain, No Vision change, No Conjunctivae inflammation, No Eyelid inflammation, No Other, No Redness ENT: No Ear pain, No Ear discharge, No Nose pain, No Nose discharge, No Nose congestion, No Mouth pain, No Mouth swelling, No Throat pain, No Throat swelling, No Other Cardiovascular: No Chest Pain, No Palpitations, No Orthopnea, No Paroxysmal Noc. Dyspnea, No Edema, No Lt Headedness, No Other Respiratory: Shortness of breath, Wheezing Gastrointestinal: No Nausea, No Vomiting, No Abdominal Pain, No Diarrhea, No Constipation, No Melena, No Hematochezia, No Other Genitourinary: No Dysuria, No Frequency, No Incontinence, No Hematuria, No Retention, No Other Musculoskeletal: No other, No neck pain, No shoulder pain, No arm pain, No back pain, No hand pain, No leg pain, No foot pain Skin: No Rash, No Lesions, No Jaundice, No Bruising, No Other Objective Vitals Vital Signs Date Time Temp Pulse Resp B/P (MAP) Pulse Ox O2 Delivery O2 Flow Rate FiO2 12/25/24 10:27 94 Nasal Cannula 2.0 12/25/24 10:27 28 12/25/24 10:05 133/90 12/25/24 08:00 70 15 12/25/24 05:00 98.1 98.1 Intake/Output Intake and Output 12/25/24 07:00 Intake Total 1475 ml Balance 1475 ml Intake Oral 1475 ml # Voids 5 # Bowel Movements 1 General Appearance: Alert, Oriented X3, Cooperative, No acute distress HEENT: Atraumatic, PERRLA, EOMI, Mucous membr. moist/pink Neck: Supple Lungs: Clear to auscultation, Normal air movement Cardiovascular: Regular rate, Normal S1, Normal S2, No murmurs, Gallops, Rubs Abdomen: Normal bowel sounds, Soft, No tenderness Neuro: Cranial nerves 3-12 NL Psych/Mental Status: Mental status NL Medications Current Medications Medications Dose Ordered Sig/Dusty Route Start Time Stop Time Status Last Admin Dose Admin Nitroglycerin 0.4 mg Q5MINP PRN SL 12/22/24 18:15 Morphine Sulfate 2 mg Q30M PRN IV 12/22/24 18:15 Losartan Potassium 25 mg DAILY PO 12/23/24 10:00 12/25/24 10:05 25 MG Montelukast Sodium 10 mg DAILY PO 12/23/24 10:00 12/25/24 10:05 10 MG Prednisone 20 mg BID PO 12/22/24 22:00 12/25/24 10:05 20 MG Morphine Sulfate 1 mg Q4HPRN PRN IV 12/22/24 18:15 Acetaminophen/ Hydrocodone Bitart 1 tab Q6HPRN PRN PO 12/22/24 18:15 Acetaminophen 500 mg Q8HP PRN PO 12/22/24 18:15 Ondansetron HCl 4 mg Q6HP PRN IV 12/22/24 18:15 Albuterol 2.5 mg Q4HPRN PRN NEB 12/22/24 18:15 12/22/24 22:16 2.5 MG Ipratropium [place] 0.5 mg Q4HPRN PRN NEB 12/22/24 18:15 12/22/24 22:17 0.5 MG Azithromycin 500 mg DAILY PO 12/23/24 10:00 12/25/24 10:04 500 MG Hydralazine HCl 10 mg Q6HP PRN IV 12/23/24 14:30 12/24/24 01:10 10 MG Diagnostic Test (Pha) 1 strip ACHS 12/23/24 17:00 12/25/24 05:58 1 STRIP Insulin Human Regular HS SC 12/23/24 22:00 12/23/24 21:15 4 UNITS Insulin Human Regular AC SC 12/23/24 17:00 12/25/24 06:00 3 UNITS Dextrose 50 ml UD PRN IV 12/23/24 14:30 Laboratory Results Laboratory Tests 12/22/24 17:22 Urinalysis Test 12/22/24 21:24 Urine Color Light-yellow (Yellow) Urine Clarity Clear (Clear) Urine pH 8.0 (5.0-9.0) Urine Specific [place] 1.020 (1.001-1.035) Urine Protein Negative (Negative) Urine Ketones Negative (Negative) Urine Blood Trace /uL (Negative) H Urine Nitrite Negative (Negative) Urine Bilirubin Negative (Negative) Urine Urobilinogen Normal mg/dL (Negative) Urine Leukocyte Esterase Negative /uL (Negative) Urine RBC 10 /hpf (0 - 4) Urine Microscopic WBC 1 /HPF (0-5) Urine Squamous Epithelial Cells Few /hpf (<5) Urine Bacteria None seen /hpf (None Seen) Urine Glucose Trace mg/dL (Normal) Labs and/or images reviewed: Labs reviewed by me Assessment/Plan Assessment/Plan acute hypoxic respiratory failure -COPD with exacerbation -primary hypertension -CKD stage IIIB -sirs response from steroid use Plan: Continuing current management. Continuing nebulized Continuing with prednisone Continuing with oxygen to keep saturation oxygen over 92% Continuing with a Zithromax Continuing Rocephin 1 g IV q.day This medical document was created using an electronic medical record system with [employer] computerized dictation system. Although this document has been carefully reviewed, there may still be some phonetic and typographical errors. These areas are purely typographical due to imperfections of the software programs, and do not reflect any compromise in the patient's medical care. Plan discussed with: Patient My Orders Orders - ALYSSA GODWIN MD Procedure Category Date Status Time Ceftriaxone Ivpb PHA 12/25/24 Verified Rocephin 12:00 Date of Service: Dec 25, 2024 Billing Provider: ALYSSA GODWIN MD Common Visit Codes: [id number] INP/OBS CARE(HIGH) ALYSSA GODWIN MD Dec 25, 2024 12:00
[2024-12-25] MEDS: cefTRIAXone 1GM/50ML D5W 50 ML IV SCH (13:41)
[2024-12-26] VITALS (13 sets, daily range): BP systolic 106–181; BP diastolic 58–73; PULSE 65–76; RESP 16–20; TEMP 97.3–98.3; O2SAT 92–98
--- NOTE | 2024-12-26 12:01 | DVHPN2 ---
Subjective The patient is seen and examined at bedside. Still complain of shortness a breath. Patient feels little bit better today. Patient able to sit up at bed to eat. Reviewed: Care Plan, H&P, Labs, Medications, Previous Orders, Radiology Changes from previous H/P or p: No Changes Eyes: No Pain, No Vision change, No Conjunctivae inflammation, No Eyelid inflammation, No Other, No Redness ENT: No Ear pain, No Ear discharge, No Nose pain, No Nose discharge, No Nose congestion, No Mouth pain, No Mouth swelling, No Throat pain, No Throat swelling, No Other Cardiovascular: No Chest Pain, No Palpitations, No Orthopnea, No Paroxysmal Noc. Dyspnea, No Edema, No Lt Headedness, No Other Respiratory: Shortness of breath, Wheezing Gastrointestinal: No Nausea, No Vomiting, No Abdominal Pain, No Diarrhea, No Constipation, No Melena, No Hematochezia, No Other Genitourinary: No Dysuria, No Frequency, No Incontinence, No Hematuria, No Retention, No Other Musculoskeletal: No other, No neck pain, No shoulder pain, No arm pain, No back pain, No hand pain, No leg pain, No foot pain Skin: No Rash, No Lesions, No Jaundice, No Bruising, No Other Objective Vitals Vital Signs Date Time Temp Pulse Resp B/P (MAP) Pulse Ox O2 Delivery O2 Flow Rate FiO2 12/26/24 11:16 167/48 12/26/24 10:03 98 Nasal Cannula* 2 28 12/26/24 08:37 98.0 66 17 98.0 Intake/Output Intake and Output 12/26/24 07:00 Intake Total 940 ml Output Total 1650 ml Balance -710 ml Intake Oral 890 ml IV Total 50 ml Output Urine Total 1650 ml # Voids 3 # Bowel Movements 1 General Appearance: Alert, Oriented X3, Cooperative, No acute distress HEENT: Atraumatic, PERRLA, EOMI, Mucous membr. moist/pink Neck: Supple Lungs: Clear to auscultation, Normal air movement Cardiovascular: Regular rate, Normal S1, Normal S2, No murmurs, Gallops, Rubs Abdomen: Normal bowel sounds, Soft, No tenderness Neuro: Cranial nerves 3-12 NL Psych/Mental Status: Mental status NL Medications Current Medications Medications Dose Ordered Sig/Dusty Route Start Time Stop Time Status Last Admin Dose Admin Nitroglycerin 0.4 mg Q5MINP PRN SL 12/22/24 18:15 Morphine Sulfate 2 mg Q30M PRN IV 12/22/24 18:15 Losartan Potassium 25 mg DAILY PO 12/23/24 10:00 12/26/24 08:53 25 MG Montelukast Sodium 10 mg DAILY PO 12/23/24 10:00 12/26/24 08:53 10 MG Prednisone 20 mg BID PO 12/22/24 22:00 12/26/24 08:53 20 MG Morphine Sulfate 1 mg Q4HPRN PRN IV 12/22/24 18:15 Acetaminophen/ Hydrocodone Bitart 1 tab Q6HPRN PRN PO 12/22/24 18:15 Acetaminophen 500 mg Q8HP PRN PO 12/22/24 18:15 Ondansetron HCl 4 mg Q6HP PRN IV 12/22/24 18:15 Albuterol 2.5 mg Q4HPRN PRN NEB 12/22/24 18:15 12/22/24 22:16 2.5 MG Ipratropium [place] 0.5 mg Q4HPRN PRN NEB 12/22/24 18:15 12/22/24 22:17 0.5 MG Azithromycin 500 mg DAILY PO 12/23/24 10:00 12/26/24 08:53 500 MG Hydralazine HCl 10 mg Q6HP PRN IV 12/23/24 14:30 12/26/24 11:16 10 MG Diagnostic Test (Pha) 1 strip ACHS 12/23/24 17:00 12/26/24 06:23 1 STRIP Insulin Human Regular HS SC 12/23/24 22:00 12/25/24 21:12 3 UNITS Insulin Human Regular AC SC 12/23/24 17:00 12/26/24 06:24 3 UNITS Dextrose 50 ml UD PRN IV 12/23/24 14:30 Ceftriaxone Sodium 50 ml @ 100 mls/hr DAILY@09 IV 12/25/24 12:00 12/26/24 08:52 100 MLS/HR Laboratory Results Laboratory Tests 12/22/24 17:22 Urinalysis Test 12/22/24 21:24 Urine Color Light-yellow (Yellow) Urine Clarity Clear (Clear) Urine pH 8.0 (5.0-9.0) Urine Specific [place] 1.020 (1.001-1.035) Urine Protein Negative (Negative) Urine Ketones Negative (Negative) Urine Blood Trace /uL (Negative) H Urine Nitrite Negative (Negative) Urine Bilirubin Negative (Negative) Urine Urobilinogen Normal mg/dL (Negative) Urine Leukocyte Esterase Negative /uL (Negative) Urine RBC 10 /hpf (0 - 4) Urine Microscopic WBC 1 /HPF (0-5) Urine Squamous Epithelial Cells Few /hpf (<5) Urine Bacteria None seen /hpf (None Seen) Urine Glucose Trace mg/dL (Normal) Labs and/or images reviewed: Labs reviewed by me Assessment/Plan Assessment/Plan acute hypoxic respiratory failure -COPD with exacerbation -primary hypertension -CKD stage IIIB -sirs response from steroid use Plan: Continuing current management. Continuing nebulized Continuing with prednisone Continuing with oxygen to keep saturation oxygen over 92% Continuing with a Zithromax Continuing Rocephin 1 g IV q.day Discharge planning This medical document was created using an electronic medical record system with [employer] computerized dictation system. Although this document has been carefully reviewed, there may still be some phonetic and typographical errors. These areas are purely typographical due to imperfections of the software programs, and do not reflect any compromise in the patient's medical care. Plan discussed with: Patient Date of Service: Dec 26, 2024 Billing Provider: ALYSSA GODWIN MD Common Visit Codes: [id number] INP/OBS CARE(HIGH) ALYSSA GODWIN MD Dec 26, 2024 12:01
[2024-12-27] VITALS (9 sets, daily range): BP systolic 138–195; BP diastolic 54–79; PULSE 69–83; RESP 16–19; TEMP 97.4–98.2; O2SAT 94–100
[2024-12-27] MEDS ORDERED: AZIT-185 PO (11:44)
[2024-12-27] MEDS ORDERED: METH4PAK PO (11:44)
--- NOTE | 2024-12-27 11:44 | DVHDS2 ---
Discharge Summary Date of Admission Dec 22, 2024 at 18:09 Date of Discharge: Dec 27, 2024 Admitting Diagnosis acute hypoxic respiratory failure -COPD with exacerbation -primary hypertension -CKD stage IIIB -sirs response from steroid use Labs/Diagnostic Data: Laboratory Results Test 12/27/24 06:13 12/22/24 21:24 12/22/24 19:30 12/22/24 17:22 POC Glucose 177 mg/dl (70-106) Urine Color Light-yellow (Yellow) Urine Clarity Clear (Clear) Urine pH 8.0 (5.0-9.0) Urine Specific [place] 1.020 (1.001-1.035) Urine Protein Negative (Negative) Urine Ketones Negative (Negative) Urine Blood Trace /uL (Negative) Urine Nitrite Negative (Negative) Urine Bilirubin Negative (Negative) Urine Urobilinogen Normal mg/dL (Negative) Urine Leukocyte Esterase Negative /uL (Negative) Urine RBC 10 /hpf (0 - 4) Urine Microscopic WBC 1 /HPF (0-5) Urine Squamous Epithelial Cells Few /hpf (<5) Urine Bacteria None seen /hpf (None Seen) Urine Glucose Trace mg/dL (Normal) Blood Gas Specimen Type Arterial Blood Gas Sample Site Left radial Blood Gas Patient Temperature 37.0 Arterial Blood Date Drawn [id number] Arterial Blood pH 7.483 (7.350-7.450) Arterial Blood Partial Pressure CO2 48.5 mmHg (32.0-45.0) Arterial Blood Partial Pressure O2 48.6 mmHg (83.0-108.0) Arterial Blood HCO3 35.6 mmol/L (21.0-28.0) Arterial Blood Oxygen Saturation 83.7 % (94.0-98.0) Arterial Blood Base Excess 10.4 mmol/L (-2.0-3.0) Arterial Blood Oxyhemoglobin 82.7 % (94.0-98.0) Arterial Blood Carboxyhemoglobin 0.8 % (0.5-1.5) Arterial Blood Methemoglobin 0.4 % (0.0-1.5) Jeovanny Test Yes Blood Gas Total Hemoglobin 14.70 g/dL (12.0-16.0) Blood Gas Modality Nasal cannula FiO2 % 21.0 Blood Gas Critical Value Read Back Yes Blood Gas Notified Whom florencio Russell np Blood Gas Notified Time [id number] Blood Gas Notified By Singer Songwriter micheal chase White Blood Count 12.1 10^3/uL (4.4-10.8) Red Blood Count 4.97 10^6/uL (4.0-5.20) Hemoglobin 14.7 g/dL (12.2-16.2) Hematocrit 44.6 % (36.0-46.0) Mean Corpuscular Volume 89.8 fL (80.0-100.0) Mean Corpuscular Hemoglobin 29.7 pg (28.0-32.0) Mean Corpuscular Hemoglobin Concent 33.0 g/dL (32.0-36.0) Red Cell Distribution Width 13.6 % (11.8-14.3) Platelet Count 218 10^3/uL (140-450) Mean Platelet Volume 10.5 fL (6.9-10.8) Neutrophils (%) (Auto) 69.0 % (37.0-80.0) Lymphocytes (%) (Auto) 20.7 % (10.0-50.0) Monocytes (%) (Auto) 9.8 % (0.0-12.0) Eosinophils (%) (Auto) 0.0 % (0.0-7.0) Basophils (%) (Auto) 0.5 % (0.0-2.0) Neutrophils # (Auto) 8.4 10 ^3/uL (1.6-8.6) Lymphocytes # (Auto) 2.5 10 ^3/uL (0.4-5.4) Monocytes # (Auto) 1.2 10 ^3/uL (0-1.3) Eosinophils # (Auto) 0 10 ^3/uL (0-0.8) Basophils # (Auto) 0.1 10 ^3/uL (0-0.2) Nucleated Red Blood Cells 0.0 % Sodium Level 141 mmol/L (136-145) Potassium Level 4.2 mmol/L (3.5-5.1) Chloride Level 95 mmol/L (98-107) Carbon Dioxide Level > 40 mmol/L (20-31) Anion Gap 5.20645 (5-15) Blood Urea Nitrogen 65 mg/dL (9-23) Creatinine 1.21 mg/dL (0.550-1.02) Glomerular Filtration Rate Calc 46 mL/min (>90) BUN/Creatinine Ratio 53.7 (10.0-20.0) Serum Glucose 204 mg/dL (74-106) Hemoglobin A1c 7.1 % A1C (<5.7) Calcium Level 9.4 mg/dL (8.7-10.4) Other Laboratory Tests 12/22/24 17:22 Brief Hx & Hospital Course: This is a 80 years old female with past medical history of COPD come to emergency department because severe shortness for breath. Apparently the patient was discharged one day prior to this admission for asthma exacerbation. The patient was treated with steroid and nebulizer however when she gets home she started having shortness for breath again. Upon arrival to emergency department on the day of admission patient had oxygen saturation is 80%. The patient was admitted. The patient was put on IV antibiotic with Rocephin and Zithromax. The patient was put on nebulizer and Solu-Medrol. Subsequently the patient improved. Requiring less oxygen per nasal cannula. The patient has oxygen set up for home with 2 L of nasal cannula continuously. Today the patient improved. Did not complain of any shortness for breath. Patient able to ambulate without decrease in saturation oxygen. The patient will be discharged home. Follow up with primary care physician 1-2 weeks. 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 Activity as tolerated. Diet per home diet. Physical exam: HEENT: Normocephalic atraumatic pupils equal react to light and accommodation. Extraocular muscles intact, conjunctiva pink, oropharynx moist, no thrush, no exudate. Lymphatic: No lymphadenopathy Cardiovascular exam: S1, S2 was heard. No murmurs, rubs, gallops Lung: Clear on auscultation bilaterally, no wheeze, rale, rhonchi. GI: Abdominal soft, nondistended, nontenderness, positive bowel sounds. Extremity: No crepitus, cyanosis, edema. Pedal pulses present bilateral. Full range of motion. Skin: Normal turgor, no rash. Psych: Alert, oriented x3. Neurology: No focal deficits, cranial nerve II to XII grossly intact. This medical document was created using an electronic medical record system with [employer] computerized dictation system. Although this document has been carefully reviewed, there may still be some phonetic and typographical errors. These areas are purely typographical due to imperfections of the software programs, and do not reflect any compromise in the patient's medical care. Condition at Discharge: Stable Final Diagnosis/Problems List acute hypoxic respiratory failure -COPD with exacerbation -primary hypertension -CKD stage IIIB -sirs response from steroid use Discharge Disposition: Home Discharge Instruct/Medications Diet: Cardiac 2g Na,low cholest Activity: No Restrictions, As Tolerated Follow Up/Referral: pcp 1-2 weeks Medications: Resume home meds Zpak until finish medro dose barxton until finish. Discharge Statement: "Patient was advised to return to the ER or call 911 if any headaches, dizziness, shortness of breath, chest pain, abdominal pain, bleeding, fevers, or worsening of medical condition. Patient was counseled about treatment plan, medications, possible side effects, patientverbalized understanding. All questions were answered to the best of my ability. This discharge took greater then 30 minutes in planning, reviewing documentation, counseling the patient, and discussing with other team members." ASSESSMENT ASSESSMENT Assessment Acute respiratory failure Date of Service: Dec 27, 2024 Billing Provider: ALYSSA GODWIN MD Common Visit Codes: [id number] DISCH DAY >30min ALYSSA GODWIN MD Dec 27, 2024 11:44
[2024-12-27] MEDS ORDERED: LOSA-534 PO (12:07)
== END 2024-12-27 17:00 | disposition home or self-care (01) | DRG 140 ==
LOC: ER 16:43 → OVERFLOW 18:09 → TELE-WESTW 23:12
PROVIDERS: ADMIT Internal Medicine; ATTEND Internal Medicine
DX: J44.1 Chronic obstructive pulmonary disease with (acute) exacerbation (principal); J96.01 Acute respiratory failure with hypoxia; R65.10 Systemic inflammatory response syndrome (SIRS) of non-infectious origin without acute organ dysfunction; J45.901 Unspecified asthma with (acute) exacerbation; N18.32 Chronic kidney disease, stage 3b; I12.9 Hypertensive chronic kidney disease with stage 1 through stage 4 chronic kidney disease, or unspecified chronic kidney disease; Y92.89 Other specified places as the place of occurrence of the external cause; T38.0X5A Adverse effect of glucocorticoids and synthetic analogues, initial encounter; Z79.51 Long term (current) use of inhaled steroids; Z79.899 Other long term (current) drug therapy
CPT/HCPCS: 36415; 36600; 71045; 80048; 81001; 82805; 82962; 83036; 85025; 93005; 94640; 96374; 99291; 99292; G0378; J1815